=== PATIENT | female | born 1985 | race Caucasian/White ===

== ENCOUNTER 2021-11-03 19:08 | Emergency (ER) | payer BC, OTHER, SELFPAY ==
--- NOTE | 2021-11-03 19:13 | ED.SKABFB ---
HPI - Skin/Abscess/Foreign Bdy General Chief complaint: Skin/Abscess/Foreign Body Stated complaint: staff infection on ear Time Seen by Provider: 11/03/21 19:13 Source: patient and RN notes reviewed History of Present Illness HPI narrative: Patient is a 35-year-old female who presents the urgent care with complaints of a possible staph infection to the right outer ear. Patient states that started 2 days ago and she got amoxicillin from the dentist at her work. Patient states that it has done nothing and the swelling seems to have increased. Patient does have a history of staph infection. States that it has been draining and she has had severe pain. Patient has been taking Tylenol and ibuprofen for pain. Denies of any fevers. No other acute complaints. No acute distress noted. Patient aware of the plan of care. Some parts of this dictation were generated by voice recognition software and may contain typographical and/or grammatical inaccuracies. Related Data Home Medications Medication Instructions Recorded Confirmed dextroamphetamine-amphetamine 30 mg PO DAILY 11/03/21 11/03/21 sumatriptan succinate 25 mg PO DIRECTED PRN 11/03/21 11/03/21 topiramate 25 mg PO DIRECTED PRN 11/03/21 11/03/21 venlafaxine 150 mg PO DAILY 11/03/21 11/03/21 Allergies Allergy/AdvReac Type Severity Reaction Status Date / Time sulfamethoxazole Allergy Unknown RASH Verified 11/03/21 19:20 trimethoprim Allergy Unknown RASH Verified 11/03/21 19:20 amoxicillin [From Augmentin] Allergy Nausea Verified 11/03/21 19:20 clavulanic acid Allergy Nausea Verified 11/03/21 19:20 [From Augmentin] Review of Systems Review of Systems: CONSTITUTIONAL: Denies fever, chills, or sweats. EYES: Denies visual changes, redness, or discharge. ENT: Denies rhinorrhea, congestion, sore throat. Reports of right otalgia CARDIOVASCULAR: Denies chest pain, palpitations, or edema. RESPIRATORY: Denies cough or dyspnea. GASTROINTESTINAL: Denies abdominal pain, nausea, vomiting, or diarrhea. GENITOURINARY: Denies dysuria or hematuria. SKIN: Denies rash or itching. MUSCULOSKELETAL: Denies back pain, joint pain, or myalgia. NEUROLOGIC: Denies headache, numbness, or weakness. All other systems reviewed are negative, except as documented in HPI. PMFSH Comments At the time of my signature, I reviewed and agree with the nursing past medical, surgical, social, and family history. There is no relevant family history pertinent to the patient complaint. Exam Narrative: GENERAL: This is a well-nourished, well-developed patient, in no apparent distress. HEAD: normocephalic, atraumatic. EYES: PERRL. Sclera clear/white. Vision is grossly intact. EARS: Moderate edema and erythema noted to the external right ear with clear yellow drainage. Left external ear normal, bilateral auditory canals clear and without drainage, TMs normal without perforation. Hearing grossly intact. NOSE: external nose normal with no obvious nasal discharge, nares without redness, no rhinorrhea. THROAT: Mucous membranes moist NECK: Neck supple CARDIOVASCULAR: Regular rate and rhythm without murmurs, gallops, or rubs. RESPIRATORY: Clear to auscultation. Breath sounds equal bilaterally. No wheezes, rales, or rhonchi. SKIN: warm, intact with no suspicious lesions or rash, good texture and turgor. NEURO: awake, alert, and oriented to person, place and time. There were no obvious focal neurologic abnormalities. EXTREMITIES: No clubbing, cyanosis, or edema. Course Course Level of Care: Express Care Visit Vital Signs Vital signs: Vital Signs Temperature 99.0 F 11/03/21 19:15 Pulse Rate 108 H 11/03/21 19:15 Respiratory Rate 16 11/03/21 19:15 Blood Pressure 137/87 11/03/21 19:15 Pulse Oximetry 100 11/03/21 19:15 Temperature 99.0 F 11/03/21 19:15 Pulse Rate 108 H 11/03/21 19:15 Respiratory Rate 16 11/03/21 19:15 Blood Pressure 137/87 11/03/21 19:15 Pulse Oximetry 100 01
[2021-11-03 19:15] VITALS: BP 137/87; PULSE 108; RESP 16; TEMP 37.2; O2SAT 100
== END 2021-11-03 19:31 | disposition home or self-care (01) ==
PROVIDERS: Emergency Provider Nurse Practitioner Family; PCP Nurse Practitioner Family
DX: H61.001 Unspecified perichondritis of right external ear (principal); Z86.19 Personal history of other infectious and parasitic diseases; F41.9 Anxiety disorder, unspecified; F32.A Depression, unspecified; F90.9 Attention-deficit hyperactivity disorder, unspecified type
CPT/HCPCS: 99213; G0463

== ENCOUNTER 2021-11-19 14:04 | Emergency (ER) | payer OTHER, BC, SELFPAY ==
[2021-11-19 14:06] VITALS: BP 145/90; PULSE 114; RESP 18; TEMP 36.4; O2SAT 100
--- NOTE | 2021-11-19 14:30 | ED.EAR ---
HPI - Ear Problem General Chief complaint: Ear Stated complaint: Ear Pain Time Seen by Provider: 11/19/21 14:07 Source: patient Mode of arrival: ambulatory Limitations: no limitations History of Present Illness HPI Narrative: This is a 35 year old female that presents to the ER for right ear pain and swelling noted over the last month. She has tried Mupirocin ointment and been on 2 different rounds of Doxycycline without relief. Reports continued redness and swelling of the outer ear. Denies fevers. Related Data Home Medications Medication Instructions Recorded Confirmed dextroamphetamine-amphetamine 30 mg PO DAILY 11/03/21 11/03/21 sumatriptan succinate 25 mg PO DIRECTED PRN 11/03/21 11/03/21 topiramate 25 mg PO DIRECTED PRN 11/03/21 11/03/21 venlafaxine 150 mg PO DAILY 11/03/21 11/03/21 Allergies Allergy/AdvReac Type Severity Reaction Status Date / Time sulfamethoxazole Allergy Unknown RASH Verified 11/19/21 14:09 trimethoprim Allergy Unknown RASH Verified 11/19/21 14:09 amoxicillin [From Augmentin] Allergy Nausea Verified 11/19/21 14:09 clavulanic acid Allergy Nausea Verified 11/19/21 14:09 [From Augmentin] Review of Systems Review of Systems: CONSTITUTIONAL: Denies fever ENT: Reports otalgia. All systems reviewed & are unremarkable except as noted in HPI and below PMFSH Past Medical History Medical History (Updated 11/19/21 @ 14:39 by Sonal Castillo PA-C) History of asthma Social History Social History (Updated 11/19/21 @ 14:33 by Sonal Castillo PA-C) Substance use: never Exam Narrative: GENERAL: Well-appearing, well-nourished, and in no acute distress. HEAD: Normocephalic, atraumatic. EYES: EOMI. ENT: Bilateral TMs pearly jiménez non-bulging. Bilateral external auditory canals normal. Right outer ear with mild to moderate erythema and edema. No active drainage or signs of an abscess. No mastoid erythema, edema or tenderness NECK: Supple. No adenopathy or masses. CHEST: No respiratory distress EXTREMITIES: Normal range of motion. No edema. SKIN: Warm, dry, no rash. NEURO: No focal deficits. Alert and oriented x3. PSYCH: Normal mood and affect Course Vital Signs Vital signs: Vital Signs Temperature 97.6 F 11/19/21 14:06 Pulse Rate 114 H 11/19/21 14:06 Respiratory Rate 18 11/19/21 14:06 Blood Pressure 145/90 H 11/19/21 14:06 Pulse Oximetry 100 11/19/21 14:06 Temperature 97.6 F 11/19/21 14:06 Pulse Rate 114 H 11/19/21 14:06 Respiratory Rate 18 11/19/21 14:06 Blood Pressure 145/90 H 11/19/21 14:06 Pulse Oximetry 100 11/19/21 14:06 Medical Decision Making MDM Narrative Medical decision making narrative: Patient presents to the emergency department for cellulitis to the right outer ear. She is afebrile and nontoxic-appearing. No signs for abscess on exam. Patient has failed therapy with doxycycline. Will trial with clindamycin. I did send a wound culture of the area where there was some serous drainage. Will be given ENT if needed for follow-up. She was given warnings to return to the ER Vital Signs Vital Signs: Vital Signs Temperature 97.6 F 11/19/21 14:06 Pulse Rate 114 H 11/19/21 14:06 Respiratory Rate 18 11/19/21 14:06 Blood Pressure 145/90 H 11/19/21 14:06 Pulse Oximetry 100 11/19/21 14:06 Temperature 97.6 F 11/19/21 14:06 Pulse Rate 114 H 11/19/21 14:06 Respiratory Rate 18 11/19/21 14:06 Blood Pressure 145/90 H 11/19/21 14:06 Pulse Oximetry 100 11/19/21 14:06 Critical Care Time Critical Care Time Critical Care Time: No Discharge Plan Discharge Clinical Impression: Cellulitis of external ear Qualifiers: Laterality: right Qualified Code(s): H60.11 - Cellulitis of right external ear Patient Disposition: Home, Self-Care Condition: Stable Instructions: Antibiotic Form, Cellulitis (ED) Additional Instructions: Return to the ER if you experience fever, increasing redness and
[2021-11-19 14:55] VITALS: BP 123/77; PULSE 77; RESP 18; O2SAT 98
== END 2021-11-19 14:56 | disposition home or self-care (01) ==
LOC: ANHED 14:41
PROVIDERS: Emergency Provider Emergency Medicine; PCP Nurse Practitioner Family
DX: H60.11 Cellulitis of right external ear (principal); J45.909 Unspecified asthma, uncomplicated
CPT/HCPCS: 87070; 87205; 99283

== ENCOUNTER 2022-05-15 15:17 | Emergency (ER) | payer BC, SELFPAY ==
[2022-05-15 15:38] VITALS: BP 123/85; PULSE 89; RESP 18; TEMP 36.8; O2SAT 100
--- NOTE | 2022-05-15 16:30 | ED.SKABFB ---
HPI - Skin/Abscess/Foreign Bdy General Chief complaint: Skin/Abscess/Foreign Body Stated complaint: rash on neck Time Seen by Provider: 05/15/22 16:30 Source: patient, RN notes reviewed and old records reviewed Mode of arrival: ambulatory Limitations: no limitations History of Present Illness HPI narrative: 36 year old female with rash to the right side of her neck and with also irritated skin around initial rash from use of adhesive Band-aide. Patient states that rash started about 5 days ago and area is burning and is painful. She states that she was diagnosed with strep pharyngitis this past Sunday and has been taking Amoxicillin 500 mg twice daily. Patient has small irregular shaped red rash to right anterior neck which has some yelloiwish exudate. with some surrounding areas of redness from adhesive. Patient concern that it could be shingles.patient states that she has been using Vaseline and Bactroban to rash. MD complaint: rash and other (exudate) Onset (ago): day(s) (5) Treatments prior to arrival: other (bactroban) Related Data Home Medications Medication Instructions Recorded Confirmed dextroamphetamine-amphetamine ER 30 mg PO DAILY 11/03/21 11/24/21 30 mg 24hr capsule,extend release sumatriptan succinate 25 mg tablet 25 mg PO DIRECTED PRN Migraine 11/03/21 11/24/21 Headache topiramate 25 mg sprinkle capsule 25 mg PO DIRECTED PRN Migraine 11/03/21 11/24/21 Headache venlafaxine 150 mg 150 mg PO DAILY 11/03/21 11/24/21 capsule,extended release 24 hr Allergies Allergy/AdvReac Type Severity Reaction Status Date / Time sulfamethoxazole Allergy Unknown RASH Verified 05/15/22 16:07 trimethoprim Allergy Unknown RASH Verified 05/15/22 16:07 amoxicillin [From Augmentin] AdvReac Nausea Verified 05/15/22 16:07 clavulanic acid AdvReac Nausea Verified 05/15/22 16:07 [From Augmentin] Review of Systems Review of Systems: CONSTITUTIONAL: Denies fever, chills, or sweats. EYES: Denies visual changes, redness, or discharge. ENT: Denies rhinorrhea, congestion, positive for sore throat which is improving since on Antibiotic, no otalgia. CARDIOVASCULAR: Denies chest pain, palpitations, or edema. RESPIRATORY: Denies cough or dyspnea. GASTROINTESTINAL: Denies abdominal pain, nausea, vomiting, or diarrhea. GENITOURINARY: Denies dysuria or hematuria. SKIN: Positive for rash to anterior neck rash with some exudate. MUSCULOSKELETAL: Denies back pain, joint pain, or myalgia. NEUROLOGIC: Denies headache, numbness, or weakness. PSYCHIATRIC: Positive for history of anxiety or depression. All systems reviewed & are unremarkable except as noted in HPI and below PMFSH Past Medical History Medical History (Updated 05/16/22 @ 21:40 by Linda Olivarez NP) ADHD (attention deficit hyperactivity disorder) Anxiety and depression History of asthma Migraine headache without aura Neuropathy Surgical History Surgical History (Updated 05/16/22 @ 21:31 by Linda Olivarez NP) [place] teeth extracted Family History Family History (Updated 11/24/21 @ 13:47 by Savanah Newsome CMA) Father Alcoholism Hyperthyroidism Grandparent Diabetes mellitus Social History Social History (Updated 05/16/22 @ 21:28 by Linda Olivarez NP) Smoking status: Never smoker Alcohol intake: never Substance use: never Substance use type: does not use Living arrangements: with family Gender identity (if verbalized by the patient): Female Comments At time of signature, agree with nursing past medical, surgical, social and family history. There is no relevant family history pertinent to the presenting complaint Exam Narrative: GENERAL: Well-appearing, well-nourished, and in no acute distress. HEAD: Normocephalic, atraumatic. EYES: PERRLA and EOMI. ENT: Nares clear, no rhinorrhea or epistaxis. Mucous membranes moist.TM's normal with good light reflex, throat with some redness no lesions or exudates some tonsil enlar
== END 2022-05-15 16:54 | disposition home or self-care (01) ==
PROVIDERS: Emergency Provider Registered Nurse; PCP Nurse Practitioner Family
DX: L25.9 Unspecified contact dermatitis, unspecified cause (principal); J45.909 Unspecified asthma, uncomplicated; G62.9 Polyneuropathy, unspecified; F90.9 Attention-deficit hyperactivity disorder, unspecified type; F41.9 Anxiety disorder, unspecified; F32.A Depression, unspecified
CPT/HCPCS: 99213; G0463

== ENCOUNTER 2022-08-28 17:17 | Emergency (ER) | payer BC, SELFPAY ==
[2022-08-28 17:26] VITALS: BP 105/79; PULSE 96; RESP 20; TEMP 36.4; O2SAT 100
--- NOTE | 2022-08-28 18:25 | ED.SKABFB ---
HPI - Skin/Abscess/Foreign Bdy General Chief complaint: Neck Pain/Injury Stated complaint: infection on neck Time Seen by Provider: 08/28/22 18:15 Source: patient and RN notes reviewed Mode of arrival: ambulatory Limitations: dementia History of Present Illness HPI narrative: 36-year-old female presents concern for skin infection to her neck. 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 She reports she just finished a round of prednisone for this condition, however 1 lesions did not improve and her dining room manager suggested it could be infected. She denies fever aches, chills. Reports small amount of drainage. complaint: abscess/boil Related Data Home Medications Medication Instructions Recorded Confirmed dextroamphetamine-amphetamine ER 30 mg PO DAILY 11/03/21 11/24/21 30 mg 24hr capsule,extend release sumatriptan succinate 25 mg tablet 25 mg PO DIRECTED PRN Migraine 11/03/21 11/24/21 Headache topiramate 25 mg sprinkle capsule 25 mg PO DIRECTED PRN Migraine 11/03/21 11/24/21 Headache venlafaxine 150 mg 150 mg PO DAILY 11/03/21 11/24/21 capsule,extended release 24 hr Allergies Allergy/AdvReac Type Severity Reaction Status Date / Time sulfamethoxazole Allergy Unknown RASH Verified 08/28/22 17:36 trimethoprim Allergy Unknown RASH Verified 08/28/22 17:36 amoxicillin [From Augmentin] AdvReac Nausea Verified 08/28/22 17:36 clavulanic acid AdvReac Nausea Verified 08/28/22 17:36 [From Augmentin] Review of Systems Review of Systems: CONSTITUTIONAL: Denies malaise, chills, sweats, or fever. EYES: Denies redness, or discharge. ENT: Denies rhinorrhea, congestion, swollen lips, swollen tongue CARDIOVASCULAR: Denies chest pain, palpitations, or edema. RESPIRATORY: Denies cough or dyspnea. GASTROINTESTINAL: Denies abdominal pain, nausea, vomiting SKIN: Reports throat swelling tender area on the anterior neck. Denies purulent drainage, vesicles, bullae, numbness, pain beyond proportion MUSCULOSKELETAL: Denies joint pain or myalgia. NEUROLOGIC: Denies headache. All systems reviewed & are unremarkable except as noted in HPI and below PMFSH Past Medical History Medical History (Updated 08/28/22 @ 18:27 by Hina Almendarez NP) ADHD (attention deficit hyperactivity disorder) Anxiety and depression History of asthma Migraine headache without aura Neuropathy Surgical History Surgical History (Updated 05/16/22 @ 21:31 by Linda Olivarez NP) [place] teeth extracted Family History Family History (Updated 11/24/21 @ 13:47 by Savanah Newsome CMA) Father Alcoholism Hyperthyroidism Grandparent Diabetes mellitus Social History Social History (Updated 05/16/22 @ 21:28 by Linda Olivarez NP) Smoking status: Never smoker Alcohol intake: never Substance use: never Substance use type: does not use Gender identity (if verbalized by the patient): Female Comments At time of signature, agree with nursing past medical, surgical, social and family history. There is no relevant family history pertinent to the presenting complaint Exam Narrative: GENERAL: Well-appearing, well-nourished, and in no acute distress. HEAD: Normocephalic, atraumatic. EYES: PERRLA, conjunctivae clear ENT: Mucous membranes moist. NECK: Supple. No lymphadenopathy CHEST: Clear to auscultation. No respiratory distress. HEART: Regular rate and rhythm. SKIN: Warm, dry. Erythema, induration, tenderness, warmth with sharp margins noted to the anterior neck. No vesicles, bullae, necrosis, ecchymosis, crepitus noted. NEURO: Alert and oriented x3. PSYCH: Normal mood and affect Course Course Emergency Course: Patient is aware of diagnosis, understands and agrees to treatment plan. Anticipatory guidance given. Patient agrees to follow-up as directed and is aware of reasons to seek care at the emergency department. Portions of this record may have been created with voice maddie
== END 2022-08-28 18:30 | disposition home or self-care (01) ==
PROVIDERS: Emergency Provider Nurse Practitioner; PCP Nurse Practitioner Family
DX: L08.9 Local infection of the skin and subcutaneous tissue, unspecified (principal); B96.89 Other specified bacterial agents as the cause of diseases classified elsewhere; M94.8X9 Other specified disorders of cartilage, unspecified sites; J45.909 Unspecified asthma, uncomplicated; G62.9 Polyneuropathy, unspecified; F90.9 Attention-deficit hyperactivity disorder, unspecified type; F41.9 Anxiety disorder, unspecified; F32.A Depression, unspecified
CPT/HCPCS: 99213; G0463

== ENCOUNTER 2023-03-23 15:57 | Inpatient (IN) | payer BC, SELFPAY ==
--- NOTE | ~2023-03-23 | CT_ITS ---
EXAMINATION: CT brain wo con DATE: 03/23/2023 18:35 INDICATION: headache, different from normal . TECHNIQUE: Computed tomography (CT) of the head was performed without intravenous contrast. The mA wa s adjusted according to patient size. Iterative reconstruction technique was employed. The dose-lengt h product was 605.33 mGy-cm. COMPARISON: None. FINDINGS: No acute intracranial hemorrhage or extra-axial fluid collection. No hydrocephalus, mass, or herniation. No acute ischemic infarct. Unremarkable dural venous sinus attenuation. No acute osseous abnormality. The aerated spaces are clear. IMPRESSION: No acute intracranial process. Reviewed, dictated and finalized at location K.
--- NOTE | ~2023-03-23 | CT_ITS ---
EXAMINATION: CT forearm RT w con DATE: 03/28/2023 13:41 INDICATION: Right forearm abscess post dogbite TECHNIQUE: High resolution computed tomography (CT) of the right forearm was performed with 100 mL Om nipaque-350 intravenous contrast. Additional sagittal and coronal reconstructions were performed. Aut omated exposure control and iterative reconstruction technique were employed. The dose-length product was 657.50 mGy-cm. COMPARISON: Ultrasound dated 03/26/2023 FINDINGS: There is soft tissue swelling with prominent subcutaneous edema along the dorsal/ulnar side of the di stal forearm and surrounding approximate 7 mm diameter ulceration which indicates with approximately 1.5 cm long gas-filled sinus tract. There is hyperemia with increased number of tiny contrast opacifi ed vessels in the surrounding soft tissues. Subcutaneous edema extending proximally along the posteri or margin of the ulna to the level of the elbow. There is no other more remote soft tissue gas. No ev ident involvement of the underlying musculature. Bones are unremarkable. Joint spaces appear normal w ith no evident joint effusions. IMPRESSION: 1. Cellulitis surrounding a skin ulceration with small gas-filled sinus tract extending into the the subcutaneous tissues which could represent either a spontaneously drained abscess or site of incision and drainage. No current drainable abscess or more remote soft tissue gas. Reviewed, dictated and finalized at location A. IMPRESSION: 1. Cellulitis surrounding a skin ulceration with small gas-filled sinus tract e xtending into the the subcutaneous tissues which could represent either a spont aneously drained abscess or site of incision and drainage. No current drainable abscess or more remote soft tissue gas.
--- NOTE | ~2023-03-23 | US_ITS ---
EXAMINATION: US soft tissue UE RT DATE: 03/26/2023 13:00 INDICATION: Infection to medial right forearm post bug bite with concern for abscess TECHNIQUE: Multiple grayscale and Doppler ultrasound images of the region of concern at the right for earm were obtained. COMPARISON: None FINDINGS: There is a reticulated pattern of hypoechoic edema in the subcutaneous fat of the right forearm surro unding and contiguous with a poorly defined more confluent hypoechoic region measuring 7 x 3 x 1 cm. There is surrounding hyperemia on color Doppler but no internal vascular flow within the hypoechoic r egion. There is no well-defined peripheral wall to suggest an organized abscess. There is a defect at the skin surface overlying the region of concern which could represent an ulceration or site of surg ical drainage in the appropriate clinical setting. This remains superficial to the peripheral muscula r fascia. IMPRESSION: 1. Poorly defined 7 x 3 x 1 cm hypoechoic region without an organized abscess wall likely representin g a region of phlegmonous change with surrounding edema. Reviewed, dictated and finalized at location A. IMPRESSION: 1. Poorly defined 7 x 3 x 1 cm hypoechoic region without an organized abscess w all likely representing a region of phlegmonous change with surrounding edema.
--- NOTE | ~2023-03-23 | US_ITS ---
EXAMINATION: US pelvic complete DATE: 03/23/2023 19:55 INDICATION: concern for septic TECHNIQUE: Multiple transabdominal sonographic images of the pelvis were obtained. COMPARISON: None. FINDINGS: Uterus: 6.3 x 3.0 x 3.8 cm. Endometrial complex measures 4 mm. Right Ovary: 1.9 x 1.7 x 1.8 cm. Vascular flow is present. No adnexal mass Left Ovary: 2.3 x 1.6 x 2.5 cm. Vascular flow is present. No adnexal mass There is no free fluid in the pelvis. IMPRESSION: Normal pelvic sonogram findings. No sonographic evidence of retained products of conception. Reviewed, dictated and finalized at location K. IMPRESSION: Normal pelvic sonogram findings. No sonographic evidence of retained products o f conception.
--- NOTE | ~2023-03-23 | XR_ITS ---
EXAMINATION: XR chest 1V portable Exam Date/Time: 03/23/2023 16:50 CDT HISTORY: Pt complains of flu symptoms after being bit by spider x1day Comparison: 10/05/2016. RESULT: Lines, tubes, and devices: None. Lungs and pleura: Clear. Cardiomediastinal silhouette: Stable. Other: No acute osseous or upper abdominal finding. IMPRESSION: No acute cardiopulmonary process. Reviewed, dictated and finalized at location K.
[2023-03-23 15:59] VITALS: BP 148/91; PULSE 140; RESP 16; TEMP 37.6; O2SAT 98
--- NOTE | 2023-03-23 16:32 | ED.SKABFB ---
HPI - Skin/Abscess/Foreign Bdy General Chief complaint: Skin/Abscess/Foreign Body <Samantha Griffin PA-C - Last Filed: 03/23/23 20:23> Stated complaint: right arm swelling, pain <Samantha Griffin PA-C - Last Filed: 03/23/23 20:23> Time Seen by Provider: 03/23/23 16:15 <Samantha Griffin PA-C - Last Filed: 03/23/23 20:23> History of Present Illness HPI narrative: 37 y/o F with a history of migraines, asthma, ADHD reports for evaluation of redness, edema and pain to her right wrist and forearm that started yesterday. Patient states she noticed a scab to her forearm while she was cleaning a pool last night, therefore thinks it may be a bug bite. She denies seeing a bug bite or feeling a bug bite her. States she woke up this morning with redness, erythema and pain to her right upper extremity. She went to [facility] emergency department this morning, was started on doxycycline, took one dose and continued to develop worsening symptoms including increased erythema, pain, edema and a fever, therefore reported to our ED. Patient also reports a bitemporal headache that wraps to the back of her head that started today. Denies vision changes, focal numbness or weakness, neck pain, back pain. Of note, patient reports she was 7 weeks and had a miscarriage 7 days ago. Patient states she is has a history of multiple miscarriages and is followed by her OB closely. She was started on progesterone and had her progesterone and hCG levels checked regularly by her OBGYN, Dr. Rhoades at [facility]. States 7 days ago, her hCG level dropped to 44 and the next day she began to have vaginal bleeding. Patient reports she does recall passing a small amount of tissue, but not as much as she has in the past when she has had past miscarriages. States she bled for 2 days and has not had bleeding, vaginal discharge, abdominal pain or cramping, low back pain since. She was scheduled to have an appointment with Dr. Rhoades today, but did not go due to coming to the ED instead. She denies concern for STDs. She does report dysuria that started today and an intermittent cough. Denies chest pain, shortness of breath. <Samantha Griffin PA-C - Last Filed: 03/23/23 20:23> Related Data Home medications: Home Medications Medication Instructions Recorded Confirmed dextroamphetamine-amphetamine ER 30 mg PO DAILY 11/03/21 11/24/21 30 mg 24hr capsule,extend release sumatriptan succinate 25 mg tablet 25 mg PO DIRECTED PRN Migraine 11/03/21 11/24/21 Headache topiramate 25 mg sprinkle capsule 25 mg PO DIRECTED PRN Migraine 11/03/21 11/24/21 Headache venlafaxine 150 mg 150 mg PO DAILY 11/03/21 11/24/21 capsule,extended release 24 hr <Samantha Griffin PA-C - Last Filed: 03/23/23 20:23> Allergies/Adverse reactions: Allergies Allergy/AdvReac Type Severity Reaction Status Date / Time sulfamethoxazole Allergy Unknown RASH Verified 08/28/22 17:36 trimethoprim Allergy Unknown RASH Verified 08/28/22 17:36 amoxicillin [From Augmentin] AdvReac Nausea Verified 08/28/22 17:36 clavulanic acid AdvReac Nausea Verified 08/28/22 17:36 [From Augmentin] <Samantha Griffin PA-C - Last Filed: 03/23/23 20:23> Review of Systems Review of Systems: CONSTITUTIONAL: See HPI EYES: Denies visual changes, redness, or discharge. ENT: Denies rhinorrhea, congestion, sore throat, or otalgia. CARDIOVASCULAR: Denies chest pain, palpitations, or edema. RESPIRATORY: See HPI GASTROINTESTINAL: Denies abdominal pain, nausea, vomiting, or diarrhea. GENITOURINARY: See HPI SKIN: See HPI MUSCULOSKELETAL: Denies back pain, joint pain, or myalgia. NEUROLOGIC: Denies headache, numbness, dizziness, or weakness. PSYCHIATRIC: Denies anxiety or depression. <Samantha Griffin PA-C - Last Filed: 03/23/23 20:23> PMFSH Past Medical History Medical History: Medical History (Updated 03/23/23 @ 20:38 by Mirian Wheat VICE PRESIDENT OF NEWS
[2023-03-23] MEDS: LORazepam INJ (*CRX) 2 MG/ML VIAL 0.5 MG IV PUSH (17:27)
[2023-03-23] MEDS: SODIUM CHLORIDE 0.9% IV 1,000 ML 999 ML IV CONT ×2 (17:28→20:36)
[2023-03-23] MEDS: KETOROLAC 30 MG/ML VIAL (*BKC) IV PUSH (17:28)
[2023-03-23] MEDS: VANCOMYCIN 1,000 MG/NS 250 ML 1,000 MG/250 ML BAG 250 MG IVPB (17:28)
[2023-03-23 17:39] LABS: Hematocrit 41.3 % (37.0-47.0); Hemoglobin 13.5 g/dL (12.0-15.0); Mean Corpuscular HGB Conc 32.7 g/dl (32-36); Mean Corpuscular Hemoglobin 26.7 pg (26-34); Mean Corpuscular Volume 81.8 fl (80-100); Mean Platelet Volume 12.1 fl (7.4-10.4); Platelet Count Result 304 k/mm3 (150-375); Red Blood Count 5.05 M/mm3 (4.2-5.4); Red Cell Distribution Width 12.9 % (11.5-14.5); White Blood Count 18.5 K/mm3 (4.5-10.0)
[2023-03-23 17:45] VITALS: PULSE 108; RESP 18
[2023-03-23] MEDS: ALBUTEROL SULFATE NEB 2.5 MG/3 ML INH INHALATION (17:49)
[2023-03-23] MEDS: IPRATROPIUM BR 0.02% INH SOLN 0.5 MG/2.5 ML VIAL INHALATION (17:49)
[2023-03-23 17:52] VITALS: PULSE 104; RESP 18
[2023-03-23 17:58] LABS: Alanine Aminotransferase 25 U/L (6-35); Albumin Level 4.9 g/dL (3.5-5.1); Alkaline Phosphatase 80 U/L (38-126); Anion Gap 11 mmol/L (8-16); Aspartate Amino Transferase 24 U/L (14-36); Blood Urea Nitrogen 18 mg/dL (7-17); CRP 5.1 mg/dL (<1.0); Calcium 9.3 mg/dL (8.4-10.2); Carbon Dioxide 20 mmol/L (22-30); Chloride 104 mmol/L (98-107); Estimated Glomerular Filt Rate > 60; Glucose 92 mg/dL (65-110); Potassium 4.1 mmol/L (3.4-5.0); Sodium 135 mmol/L (137-145)
[2023-03-23 18:21] LABS: Influenza A QL RT-PCR Negative (Negative); Influenza B QL RT-PCR Negative (Negative); SARS-CoV-2 RNA PCR Negative (Negative)
[2023-03-23 18:28] LABS: Erythrocyte Sedimentation Rate 10 mm/hr (0-20)
[2023-03-23 18:32] LABS: Band Neutrophils Percent 5 % (0-6); Lymphocytes Absolute Manual 0.92 K/mm3 (1.1-4.5); Monocytes Absolute Manual 0.92 K/mm3 (0.1-0.90); Monocytes Percent Manual 5 % (3-9); Neutrophils Absolute Manual 16.65 K/mm3 (1.7-7.2); Neutrophils Percent Manual 85 % (46-73); Platelet Estimate Adequate (Adequate); Schistocytes None Seen (NORMAL); Total Cells Counted 100
--- NOTE | 2023-03-23 20:34 | PM.IMHP ---
H&P: HPI History of Present Illness Date/Time: 03/23/23 20:34 Chief Complaint: Redness and edema to right arm Narrative: This is a 37-year-old female patient with a history of migraine, asthma and ADHD. The patient came to the emergency room to be evaluated for edema pain to her right wrist and forearm that started yesterday. The patient stated that she was cleaning a pool last night emboli she had a bug bite. She denies seeing the above. She woke up in the morning with redness, erythema and pain her right upper extremity. She went to [facility] Emergency Room and was started on doxycycline. She took 1 dose and continue to have worsening symptoms. She did have increased edema , pain, edema and fever. The patient then proceeded to come to the emergency room. The patient also reported that she was 7 weeks and had a miscarriage 7 days ago. She has had multiple miscarriages. A vaginal exam was performed in the emergency room. Cultures were obtained. White count 18.5. Neutrophils 85. Sodium 135. Her beta hCG quantitative is now listed 2.39. The patient was started on IV fluids vancomycin Ativan Toradol albuterol Atrovent and Tylenol. Blood cultures were obtained and the patient was checked for chlamydia and gonorrhea. The patient is being admitted to observation status on the date of service of 03/23/2023 Review of Systems Review of Systems: All systems reviewed & are unremarkable except as noted in HPI and below Constitutional: Constitutional: Reports as per HPI and Reports no additional constitutional complaints Eyes: Eyes: Reports as per HPI and Reports no additional eye complaints ENT: Reports system reviewed and no additional complaints, except as documented and Reports Normal hearing present Cardiovascular: Cardiovascular: Reports no additional cardiovascular complaints Respiratory: Respiratory: Reports no additional respiratory complaints and Reports no additional respiratory complaints Gastrointestinal: Gastrointestinal: Reports as per HPI and Reports no additional gastrointestinal complaints Musculoskeletal: Musculoskeletal: Reports no additional musculoskeletal complaints Integumentary/Breasts: Skin/Breast: Reports system reviewed and no additional complaints, except as docu and Reports as per HPI Neurologic: Reports system reviewed and no additional complaints, except as documented, Reports as per HPI and Reports Normal hearing present Psychiatric: Psychiatric: Reports no additional psychiatric complaints and Reports as per HPI Endocrine: Endocrine: Reports no additional endocrine complaints Hematologic/Lymphatic: Hematologic/Lymphatic: Reports no additional hematologic/lymphatic complaints Allergic/Immunologic: Allergic/Immunologic: Reports no additional allergic/immunologic complaints [facility] Past Medical History Medical History ADHD (attention deficit hyperactivity disorder) Anxiety and depression Autoimmune disease History of asthma Migraine headache without aura Neuropathy Surgical History Surgical History [place] teeth extracted Family History Family History Father Alcoholism Hyperthyroidism Cerebrovascular accident Grandparent Diabetes mellitus Liver cancer Malignant neoplasm of prostate Sibling Hemochromatosis Migraine Social History Social History (Updated 03/24/23 @ 00:06 by Mirian Wheat NP) Social History: she lives with her . She has one son who has cerebral palsy and one step son cerebral palsey . The patient vapes and uses marijuana. She is a [id number] mother. Code status full code Smoking status: Current every day smoker Tobacco type: e-cigarettes/vaping Alcohol intake: never Substance use: current Substance use type: marijuana Lack of Transportation: No Lack of
--- NOTE | 2023-03-23 20:36 | PC.NURSE ---
Vancomycin started at 1728 is still running at this time due to pt condition.
[2023-03-23 20:46] LABS: Appearance Urine Clear (Clear); Bacteria Urine None Seen /hpf; Bilirubin Urine Negative (Negative); Blood Urine Negative (Negative); Color Urine Yellow (Yellow); Glucose Urine UA Negative (Negative); Ketones Urine 1+ mg/dL (Negative); Leukocyte Esterase Ur Trace LEU/UL (Negative); Nitrate Urine Negative (Negative); Non Pathogenic Casts 0-2; Protein Urine Negative (Negative); RBC Urine 0-2 /hpf (0-2); Specific Grav Ur 1.018 (1.001-1.035); Squamous Epithelial Cell Urine Moderate /hpf (Few); WBC Urine 0-5 /hpf; pH Urine 5.5 (5.0-9.0)
[2023-03-23 20:48] LABS: INR 1.1; Partial Thromboplastin Time 25.9 SECONDS (22.3-36.8); Prothrombin Time 14.4 Seconds (11.1-14.7)
[2023-03-23 20:50] LABS: Add Urine Microscopic? YES
[2023-03-23 21:05] LABS: Beta HCG Quantitative < 2.39 mIU/ML
[2023-03-23] MEDS: ACETAMINOPHEN 500 MG TABLET 1000 MG PO (21:16)
[2023-03-23 21:42] VITALS: BP 109/79; PULSE 93; RESP 15; O2SAT 100
[2023-03-23 22:00] VITALS: BP 115/69; PULSE 101; RESP 14; TEMP 37.2; O2SAT 100
[2023-03-23 22:12] LABS: Lactic Acid Reflex 1.3 mmol/L (0.7-2.0)
--- NOTE | 2023-03-23 22:15 | ADMGEN ---
This patient, Cherelle Yates, was admitted to Medical Room 341-01. Patient/family oriented to hospital policies and general routines including ID bracelet, bed and alarms, visiting hours, pain management, procedures, bathroom and other care routines, personal items, smoking policy, room service/diet, and visiting hours. Information on how to activate the Rapid Response Team has been discussed. Patient/Family are encouraged to report perceived risks to care and to ask questions if they do not understand what they are told or what they should do.
[2023-03-23] MEDS: PIPERACILLN/TAZ 3.375GM/NS50ML 3.375 GM/50 ML BAG IVPB (22:32)
[2023-03-24] MEDS: SODIUM CHLORIDE 0.9% IV 1,000 ML 100 ML IV CONT (01:00)
[2023-03-24 01:30] VITALS: O2SAT 99
[2023-03-24] MEDS: PIPERACILLN/TAZ 3.375GM/NS50ML 3.375 GM/50 ML BAG IVPB ×3 (05:22→17:16)
[2023-03-24 05:32] VITALS: BP 103/58; PULSE 91; RESP 16; TEMP 36.6; O2SAT 100
[2023-03-24 06:06] LABS: Basophils Absolute Auto 0.1 K/mm3 (0.0-0.1); Basophils Percent Auto 0.4 % (0.2-1.2); Eosinophils Absolute Auto 0.1 K/mm3 (0-0.3); Eosinophils Percent Auto 0.9 % (0-4.4); Hematocrit 37.7 % (37.0-47.0); Hemoglobin 11.7 g/dL (12.0-15.0); Immature Granulocyte Absolute 0.09 K/mm3 (0.00-0.031); Immature Granulocyte Percent A 0.6 % (0-0.5); Lymphocytes Absolute Auto 2.22 K/mm3 (0.9-3.2); Lymphocytes Percent Auto 13.8 % (18.3-44.2); Mean Corpuscular Hemoglobin 27.3 pg (26-34); Mean Corpuscular Volume 88.1 fl (80-100); Mean Platelet Volume 12.6 fl (7.4-10.4); Monocytes Absolute Auto 1.1 K/mm3 (0.1-0.6); Monocytes Percent Auto 6.8 % (2.6-8.5); Neutrophils Absolute Auto 12.5 K/mm3 (1.3-6.7); Neutrophils Percent Auto 77.5 % (45.5-73.1); Platelet Count Result 229 k/mm3 (150-375); Red Blood Count 4.28 M/mm3 (4.2-5.4); Red Cell Distribution Width 13.2 % (11.5-14.5); White Blood Count 16.1 K/mm3 (4.5-10.0)
[2023-03-24 06:24] VITALS: BMI 24.8
[2023-03-24 06:27] LABS: Magnesium 2.4 mg/dL (1.6-2.3)
[2023-03-24] MEDS: ACETAMINOPHEN 325 MG TABLET 650 MG PO (06:30)
[2023-03-24 06:38] LABS: Lactic Acid Reflex 4.3 mmol/L (0.7-2.0)
[2023-03-24] MEDS: SODIUM CHLORIDE 0.9% IV 1,000 ML 999 ML IV CONT ×2 (07:30→08:34)
--- NOTE | 2023-03-24 08:25 | PM.IMPN ---
Progress Note: A&P Assessment and Plan (1) Cellulitis: Qualifiers: Laterality: right Site of cellulitis: extremity Site of cellulitis of extremity: upper extremity Qualified Code(s): L03.113 - Cellulitis of right upper limb Code(s): L03.90 - Cellulitis, unspecified Status: Acute (2) Sepsis: Qualifiers: Sepsis acute organ dysfunction status: without acute organ dysfunction Sepsis type: sepsis due to unspecified organism Qualified Code(s): A41.9 - Sepsis, unspecified organism Code(s): A41.9 - Sepsis, unspecified organism Status: Acute (3) Anxiety and depression: Code(s): F41.9 - Anxiety disorder, unspecified; F32.A - Depression, unspecified Status: Acute (4) Headache: Code(s): R51.9 - Headache, unspecified Status: Acute (5) Autoimmune disease: Code(s): M35.9 - Systemic involvement of connective tissue, unspecified Status: Acute Plan Cellulitis with sepsis -WBC elevated 18.5 on admission, 16.1 today. -Receiving broad spectrum antibiotic coverage with Vanco and Zosyn. Vanco trough 03/25/23 at 1000. Dosing per pharmacy. -No documented fevers overnight however, patient does endorse chills, generalized body aches, and night sweats. Acetaminophen PRN for fever greater than 101. Will repeat cultures should she fever. Current blood cultures are pending. -Lactic 4.3 this morning. Administered 2 L of NS with a repeat lactic of 1.0. NS continues at 100 mls per hour. -Pain related to right arm swelling is being treated with [place] 10 mg q 4 prn. Encourage right arm elevation. Anxiety/ADHD -Restarting home medication Dextroamphetamine-amphetamine 30 mg PO daily and 10 mg PO HS. -Venlafaxine 150 mg PO daily Migraine -PRN Sumatriptan Succinate 25 mg PO as needed Neuropathy -Takes 1200 mg of Gabapentin PO TID. Restarted. Recurrent Miscarriage -A3 -Recent loss at 7 weeks. Pelvic ultrasound obtained with normal sonogram findings. No sonographic evidence of retained products of conception. -HCG <2.39 -Provided emotional support. Unknown Autoimmune disorder -recent biopsy with Coder, Dr. Powell confirming autoimmune process however the patient can not recall name of diagnosis. -follows with Copyright Manager, Dr Powell. Subjective Date/time seen: 03/24/23 08:25 Interval history: This is a 37-year-old female who presents to our ER last night with complaints of worsening right arm swelling erythema and tenderness. She states that the day before she was cleaning out her pool and she sustained a bug bite. She went to [facility] where she was given a prescription for doxycycline and discharged home. Later after taking a nap she noticed that her right arm swelling had increased and was traveling up to her elbow. She then came to [place] [facility] for evaluation. She has a past medical history of ADHD, anxiety and depression, asthma, migraine, neuropathy, recent miscarriage, and new diagnosis of autoimmune disease. She is unsure of the name of the autoimmune disease but she had a biopsy done by Dr. Powell, buttonholer which confirmed diagnosis. And she follows with Dr. Powell, replenisher. She has yet to start on any medications for this. Today she is found lying in bed she appears anxious. She states that she had subjective chills and sweating overnight, she has generalized body aches, and severe tenderness in her right arm that is causing limited range of motion to her right elbow. She also complains of mild headache and neck pain. She does not think that she has been voiding enough but she states she is drinking fluids. She denies cough, chest pain, shortness of breath, abdominal pain, and diarrhea. Lactic acid was 4.3 on labs this morning for which she is receiving 2 L of normal saline. Will check a lactic after infusion of 2 L NS. Review of Systems Review of Systems: All systems reviewed & are unremarkable except as noted i
[2023-03-24 08:26] VITALS: BP 111/77; PULSE 92; RESP 15; TEMP 36.8; O2SAT 100
[2023-03-24] MEDS: GABAPENTIN 400 MG CAPSULE 1200 MG PO ×3 (08:32→17:16)
[2023-03-24] MEDS: ENOXAPARIN 40 MG/0.4 ML SYRINGE SUB-Q (08:32)
[2023-03-24] MEDS: VENLAFAXINE HCL XR 75 MG CAP.ER.24H 150 MG PO (08:32)
[2023-03-24] MEDS: HYDROcodone/acetaminophen (*CRX) 5-325 MG TABLET 1 TAB PO ×2 (08:32→10:31)
[2023-03-24 09:02] LABS: Reflex Lactic Acid Yes or No Add Lactic
[2023-03-24 09:22] LABS: Alanine Aminotransferase 20 U/L (6-35); Albumin Level 3.8 g/dL (3.5-5.1); Alkaline Phosphatase 70 U/L (38-126); Anion Gap 10 mmol/L (8-16); Aspartate Amino Transferase 21 U/L (14-36); Bilirubin,Total 0.7 mg/dL (0.2-1.3); Blood Urea Nitrogen 11 mg/dL (7-17); Calcium 8.2 mg/dL (8.4-10.2); Carbon Dioxide 13 mmol/L (22-30); Chloride 117 mmol/L (98-107); Estimated Glomerular Filt Rate > 60; Glucose 82 mg/dL (65-110); Potassium 4.2 mmol/L (3.4-5.0); Sodium 140 mmol/L (137-145)
[2023-03-24] MEDS: VANCOMYCIN 1,000 MG/NS 250 ML 1,000 MG/250 ML BAG 250 MG IVPB ×2 (10:32→22:54)
[2023-03-24 13:55] VITALS: BP 116/67; PULSE 97; RESP 16; TEMP 37; O2SAT 99
[2023-03-24] MEDS: SUMAtriptan SUCCINATE 25 MG TABLET PO ×2 (15:19→19:41)
[2023-03-24] MEDS: HYDROcodone/acetaminophen (*CRX) 10-325 MG TABLET 1 TAB PO ×2 (15:22→21:15)
[2023-03-24] MEDS: SENNA/DOCUSATE SODIUM TABLET 1 TAB PO (19:41)
[2023-03-24 19:47] VITALS: PULSE 97; RESP 16; O2SAT 99
[2023-03-24 20:00] VITALS: BP 122/72; PULSE 100; RESP 18; TEMP 36.9; O2SAT 100
[2023-03-25] VITALS: BP 122/78; PULSE 108; RESP 16; TEMP 37.2; O2SAT 96
[2023-03-25] MEDS: PIPERACILLN/TAZ 3.375GM/NS50ML 3.375 GM/50 ML BAG IVPB ×5 (00:02→23:39)
[2023-03-25 04:00] VITALS: BP 119/61; PULSE 102; RESP 18; TEMP 37.1; O2SAT 96
[2023-03-25] MEDS: SODIUM CHLORIDE 0.9% IV 1,000 ML 100 ML IV CONT (05:00)
[2023-03-25] MEDS: ACETAMINOPHEN 325 MG TABLET 650 MG PO ×2 (05:02→09:05)
--- NOTE | 2023-03-25 07:49 | PM.IMPN ---
Progress Note: A&P Assessment and Plan (1) Cellulitis: Qualifiers: Laterality: right Site of cellulitis: extremity Site of cellulitis of extremity: upper extremity Qualified Code(s): L03.113 - Cellulitis of right upper limb Code(s): L03.90 - Cellulitis, unspecified Status: Acute (2) Sepsis: Qualifiers: Sepsis acute organ dysfunction status: without acute organ dysfunction Sepsis type: sepsis due to unspecified organism Qualified Code(s): A41.9 - Sepsis, unspecified organism Code(s): A41.9 - Sepsis, unspecified organism Status: Acute (3) Anxiety and depression: Code(s): F41.9 - Anxiety disorder, unspecified; F32.A - Depression, unspecified Status: Acute (4) Headache: Code(s): R51.9 - Headache, unspecified Status: Acute (5) Autoimmune disease: Code(s): M35.9 - Systemic involvement of connective tissue, unspecified Status: Acute Plan Cellulitis with sepsis -WBC elevated 18.5-->16.1-->14.5 today. -Receiving broad spectrum antibiotic coverage with Vanco and Zosyn. Vanco trough 03/25/23 at 1000 was 6.2. Dosing per pharmacy. -No documented fevers overnight. Body aches improved but still waking up drenched in sweat. Possibly could be related to use of narcotic and antibiotic regimen. Acetaminophen PRN for fever greater than 101. Will repeat cultures should she fever. Current blood cultures with NGTD. -Lactic 4.3 03/25. Administered 2 L of NS with a repeat lactic of 1.0. NS continues at 100 mls per hour. -CRP elevated 18.3 -Pain related to right arm swelling is being treated with [place] 10 mg q 4 prn. Encourage right arm elevation. Anxiety/ADHD -Unable to restart home medication Dextroamphetamine-amphetamine as it is not on formulary. Nurse asked patient if her could bring in her home meds but the patient says she will be fine without it. -Venlafaxine 150 mg PO daily Hypokalemia -K+ 3.3 on am labs. Will replace with K+ 40 Meq PO once. Migraine -CT head on admission with no acute intracranial process. -Improved today after prn acetaminophen -PRN Sumatriptan Succinate 25 mg PO as needed Neuropathy -Takes 1200 mg of Gabapentin PO TID. Restarted. Recurrent Miscarriage -A3 -Recent loss at 7 weeks. Pelvic ultrasound obtained with normal sonogram findings. No sonographic evidence of retained products of conception. -HCG <2.39 -Provided emotional support. Unknown Autoimmune disorder -recent biopsy with Assembler Adjuster, Dr. Powell confirming autoimmune process however the patient can not recall name of diagnosis. -follows with Identity Management Developer, Dr Powell. Subjective Date/time seen: 03/25/23 07:49 Interval history: This is a 37-year-old female who presents to our ER last night with complaints of worsening right arm swelling erythema and tenderness. She states that the day before she was cleaning out her pool and she sustained a bug bite. She went to [facility] where she was given a prescription for doxycycline and discharged home. Later after taking a nap she noticed that her right arm swelling had increased and was traveling up to her elbow. She then came to [place] [facility] for evaluation. She has a past medical history of ADHD, anxiety and depression, asthma, migraine, neuropathy, recent miscarriage, and new diagnosis of autoimmune disease. She is unsure of the name of the autoimmune disease but she had a biopsy done by Dr. Powell, associate store director which confirmed diagnosis. And she follows with Dr. Powell, bass viol repairer. She has yet to start on any medications for this. Today she is found lying in bed she appears anxious. She states that she had subjective chills and sweating overnight, she has generalized body aches, and severe tenderness in her right arm that is causing limited range of motion to her right elbow. She also complains of mild headache and neck pain. She does not think that she has been voiding enough but s
[2023-03-25 08:00] VITALS: BP 117/69; PULSE 89; RESP 16; TEMP 36.3; O2SAT 98
[2023-03-25] MEDS: ENOXAPARIN 40 MG/0.4 ML SYRINGE SUB-Q (08:55)
[2023-03-25] MEDS: GABAPENTIN 400 MG CAPSULE 1200 MG PO ×3 (08:55→17:08)
[2023-03-25] MEDS: VENLAFAXINE HCL XR 75 MG CAP.ER.24H 150 MG PO (08:55)
[2023-03-25 10:14] LABS: Hematocrit 35.2 % (37.0-47.0); Hemoglobin 11.1 g/dL (12.0-15.0); Mean Corpuscular HGB Conc 31.5 g/dl (32-36); Mean Corpuscular Hemoglobin 27.5 pg (26-34); Mean Corpuscular Volume 87.3 fl (80-100); Mean Platelet Volume 11.9 fl (7.4-10.4); Platelet Count Result 217 k/mm3 (150-375); Red Blood Count 4.03 M/mm3 (4.2-5.4); Red Cell Distribution Width 13.2 % (11.5-14.5); White Blood Count 14.5 K/mm3 (4.5-10.0)
[2023-03-25 10:37] LABS: Vancomycin Trough 6.2 ug/mL (10.0-20.0)
[2023-03-25 10:38] LABS: Anion Gap 8 mmol/L (8-16); Blood Urea Nitrogen 3 mg/dL (7-17); Calcium 8.4 mg/dL (8.4-10.2); Carbon Dioxide 23 mmol/L (22-30); Chloride 107 mmol/L (98-107); Estimated Glomerular Filt Rate > 60; Glucose 112 mg/dL (65-110); Magnesium 2.1 mg/dL (1.6-2.3); Potassium 3.3 mmol/L (3.4-5.0); Sodium 138 mmol/L (137-145)
[2023-03-25 10:49] LABS: CRP 18.3 mg/dL (<1.0)
[2023-03-25 12:00] VITALS: BP 115/60; PULSE 97; RESP 16; TEMP 36.8; O2SAT 99
[2023-03-25] MEDS: POTASSIUM CHLORIDE 20 MEQ ER TABLET 40 MEQ PO (12:01)
[2023-03-25] MEDS: HYDROcodone/acetaminophen (*CRX) 10-325 MG TABLET 1 TAB PO ×2 (13:29→20:31)
[2023-03-25 16:00] VITALS: BP 107/65; PULSE 93; RESP 16; TEMP 37.1; O2SAT 100
[2023-03-25] MEDS: SUMAtriptan SUCCINATE 25 MG TABLET PO (17:09)
[2023-03-25 20:00] VITALS: BP 102/63; PULSE 96; RESP 18; TEMP 36.7; O2SAT 100
[2023-03-25] MEDS: SENNA/DOCUSATE SODIUM TABLET 1 TAB PO (20:03)
[2023-03-26] VITALS: BP 114/73; PULSE 88; RESP 20; TEMP 36.7; O2SAT 98
[2023-03-26 04:00] VITALS: BP 113/67; PULSE 89; RESP 18; TEMP 36.6; O2SAT 99
[2023-03-26] MEDS: PIPERACILLN/TAZ 3.375GM/NS50ML 3.375 GM/50 ML BAG IVPB ×4 (06:04→23:15)
[2023-03-26] MEDS: HYDROcodone/acetaminophen (*CRX) 10-325 MG TABLET 1 TAB PO ×3 (06:04→23:17)
[2023-03-26 06:30] LABS: Basophils Absolute Auto 0.1 K/mm3 (0.0-0.1); Basophils Percent Auto 0.4 % (0.2-1.2); Eosinophils Absolute Auto 0.4 K/mm3 (0-0.3); Eosinophils Percent Auto 3.2 % (0-4.4); Hematocrit 34.7 % (37.0-47.0); Hemoglobin 10.7 g/dL (12.0-15.0); Immature Granulocyte Absolute 0.07 K/mm3 (0.00-0.031); Immature Granulocyte Percent A 0.6 % (0-0.5); Lymphocytes Absolute Auto 1.32 K/mm3 (0.9-3.2); Lymphocytes Percent Auto 10.4 % (18.3-44.2); Mean Corpuscular HGB Conc 30.8 g/dl (32-36); Mean Corpuscular Hemoglobin 26.8 pg (26-34); Mean Corpuscular Volume 86.8 fl (80-100); Mean Platelet Volume 12.8 fl (7.4-10.4); Monocytes Absolute Auto 0.8 K/mm3 (0.1-0.6); Monocytes Percent Auto 6.1 % (2.6-8.5); Neutrophils Absolute Auto 10.1 K/mm3 (1.3-6.7); Neutrophils Percent Auto 79.3 % (45.5-73.1); Platelet Count Result 213 k/mm3 (150-375); Red Cell Distribution Width 12.9 % (11.5-14.5); White Blood Count 12.7 K/mm3 (4.5-10.0)
[2023-03-26 06:45] LABS: Alanine Aminotransferase 17 U/L (6-35); Albumin Level 3.7 g/dL (3.5-5.1); Alkaline Phosphatase 75 U/L (38-126); Anion Gap 8 mmol/L (8-16); Aspartate Amino Transferase 25 U/L (14-36); Bilirubin,Total 0.5 mg/dL (0.2-1.3); Blood Urea Nitrogen 2 mg/dL (7-17); Calcium 8.5 mg/dL (8.4-10.2); Carbon Dioxide 22 mmol/L (22-30); Chloride 108 mmol/L (98-107); Estimated Glomerular Filt Rate > 60; Glucose 77 mg/dL (65-110); Magnesium 2.1 mg/dL (1.6-2.3); Potassium 3.5 mmol/L (3.4-5.0); Sodium 138 mmol/L (137-145)
[2023-03-26] MEDS: ENOXAPARIN 40 MG/0.4 ML SYRINGE SUB-Q (08:59)
[2023-03-26] MEDS: VENLAFAXINE HCL XR 75 MG CAP.ER.24H 150 MG PO (08:59)
[2023-03-26] MEDS: GABAPENTIN 400 MG CAPSULE 1200 MG PO ×3 (08:59→17:29)
[2023-03-26 12:00] VITALS: BP 106/74; PULSE 91; RESP 16; TEMP 36.4; O2SAT 100
--- NOTE | 2023-03-26 15:20 | PM.IMPN ---
Progress Note: A&P Assessment and Plan (1) Cellulitis: Qualifiers: Laterality: right Site of cellulitis: extremity Site of cellulitis of extremity: upper extremity Qualified Code(s): L03.113 - Cellulitis of right upper limb Code(s): L03.90 - Cellulitis, unspecified Status: Acute (2) Sepsis: Qualifiers: Sepsis acute organ dysfunction status: without acute organ dysfunction Sepsis type: sepsis due to unspecified organism Qualified Code(s): A41.9 - Sepsis, unspecified organism Code(s): A41.9 - Sepsis, unspecified organism Status: Acute (3) Anxiety and depression: Code(s): F41.9 - Anxiety disorder, unspecified; F32.A - Depression, unspecified Status: Acute (4) Headache: Code(s): R51.9 - Headache, unspecified Status: Acute (5) Autoimmune disease: Code(s): M35.9 - Systemic involvement of connective tissue, unspecified Status: Acute Plan Cellulitis with sepsis -WBC elevated 18.5-->16.1-->14.5-->12.7 today. -Receiving broad spectrum antibiotic coverage with Vanco and Zosyn. Vanco trough 03/25/23 at 1000 was 6.2. Dosing per pharmacy. -No documented fevers overnight. Body aches improved but still waking up drenched in sweat. Possibly could be related to use of narcotic and antibiotic regimen. Acetaminophen PRN for fever greater than 101. Will repeat cultures should she fever. Current blood cultures with NGTD. -Lactic 4.3 03/25. Administered 2 L of NS with a repeat lactic of 1.0. NS continues at 100 mls per hour. -Pain related to right arm swelling is being treated with [place] 10 mg q 4 prn. Encourage right arm elevation. -Sent for ultrasound today to make sure there wasn't an abscess that needs I&D. Spoke with radiologist and it does not appear like there is enough of a fluid collection to warrant drainage. Clinically her arm has improved each day. Anxiety/ADHD -Unable to restart home medication Dextroamphetamine-amphetamine as it is not on formulary. Nurse asked patient if her could bring in her home meds but the patient says she will be fine without it. -Venlafaxine 150 mg PO daily Migraine -CT head on admission with no acute intracranial process. -Improved today after prn acetaminophen -PRN Sumatriptan Succinate 25 mg PO as needed Neuropathy -Takes 1200 mg of Gabapentin PO TID. Restarted. Recurrent Miscarriage -A3 -Recent loss at 7 weeks. Pelvic ultrasound obtained with normal sonogram findings. No sonographic evidence of retained products of conception. -HCG <2.39 -Provided emotional support. -cervical culture with Group B Strep Unknown Autoimmune disorder -recent biopsy with Auctioneer Art, Dr. Powell confirming autoimmune process however the patient can not recall name of diagnosis. -follows with Preparation Supervisor, Dr Powell. Subjective Date/time seen: 03/26/23 15:20 Interval history: This is a 37-year-old female who presents to our ER last night with complaints of worsening right arm swelling erythema and tenderness. She states that the day before she was cleaning out her pool and she sustained a bug bite. She went to [facility] where she was given a prescription for doxycycline and discharged home. Later after taking a nap she noticed that her right arm swelling had increased and was traveling up to her elbow. She then came to [place] ER for evaluation. She has a past medical history of ADHD, anxiety and depression, asthma, migraine, neuropathy, recent miscarriage, and new diagnosis of autoimmune disease. She is unsure of the name of the autoimmune disease but she had a biopsy done by Dr. Powell, log processor operator which confirmed diagnosis. And she follows with Dr. Powell, proposal coordinator. She has yet to start on any medications for this. Today she is found lying in bed she appears anxious. She states that she had subjective chills and sweating overnight, she has generalized body aches, and severe tenderness in
[2023-03-26 19:32] VITALS: BP 107/66; PULSE 86; RESP 14; TEMP 36.9; O2SAT 98
[2023-03-26 20:00] VITALS: PULSE 86; RESP 14; O2SAT 98
[2023-03-26] MEDS: SENNA/DOCUSATE SODIUM TABLET 1 TAB PO (20:06)
[2023-03-26] MEDS: IBUPROFEN 600 MG TABLET PO (20:06)
[2023-03-26 23:48] LABS: Vancomycin Trough 33.4 ug/mL (10.0-20.0)
[2023-03-27 04:15] VITALS: BP 107/59; PULSE 71; RESP 14; TEMP 37.2; O2SAT 98
[2023-03-27] MEDS: PIPERACILLN/TAZ 3.375GM/NS50ML 3.375 GM/50 ML BAG IVPB ×2 (05:10→13:11)
[2023-03-27 05:33] LABS: Basophils Absolute Auto 0.1 K/mm3 (0.0-0.1); Basophils Percent Auto 0.8 % (0.2-1.2); Eosinophils Absolute Auto 0.4 K/mm3 (0-0.3); Eosinophils Percent Auto 4.8 % (0-4.4); Hematocrit 33.1 % (37.0-47.0); Hemoglobin 10.5 g/dL (12.0-15.0); Immature Granulocyte Absolute 0.03 K/mm3 (0.00-0.031); Immature Granulocyte Percent A 0.4 % (0-0.5); Lymphocytes Absolute Auto 1.24 K/mm3 (0.9-3.2); Mean Corpuscular HGB Conc 31.7 g/dl (32-36); Mean Corpuscular Hemoglobin 27.1 pg (26-34); Mean Corpuscular Volume 85.5 fl (80-100); Mean Platelet Volume 12.5 fl (7.4-10.4); Monocytes Absolute Auto 0.8 K/mm3 (0.1-0.6); Monocytes Percent Auto 9.7 % (2.6-8.5); Neutrophils Absolute Auto 5.3 K/mm3 (1.3-6.7); Neutrophils Percent Auto 68.3 % (45.5-73.1); Platelet Count Result 229 k/mm3 (150-375); Red Blood Count 3.87 M/mm3 (4.2-5.4); White Blood Count 7.8 K/mm3 (4.5-10.0)
[2023-03-27 05:49] LABS: Anion Gap 9 mmol/L (8-16); Blood Urea Nitrogen 6 mg/dL (7-17); Calcium 8.1 mg/dL (8.4-10.2); Carbon Dioxide 22 mmol/L (22-30); Chloride 108 mmol/L (98-107); Estimated Glomerular Filt Rate 51; Glucose 83 mg/dL (65-110); Potassium 3.3 mmol/L (3.4-5.0); Sodium 139 mmol/L (137-145)
[2023-03-27] MEDS: VENLAFAXINE HCL XR 75 MG CAP.ER.24H 150 MG PO (08:30)
[2023-03-27] MEDS: GABAPENTIN 400 MG CAPSULE 1200 MG PO ×3 (08:30→17:45)
[2023-03-27] MEDS: ENOXAPARIN 40 MG/0.4 ML SYRINGE SUB-Q (08:30)
[2023-03-27] MEDS: IBUPROFEN 600 MG TABLET PO (11:09)
[2023-03-27] MEDS: LACTATED RINGERS 1,000 ML 999 ML IV CONT (13:10)
[2023-03-27] MEDS: POTASSIUM CHLORIDE 20 MEQ PACKET (FOR LIQUID) 40 MEQ PO (13:10)
[2023-03-27 14:00] VITALS: BP 107/60; PULSE 80; RESP 16; TEMP 36.8; O2SAT 100
--- NOTE | 2023-03-27 14:45 | PM.IMPN ---
Progress Note: A&P Assessment and Plan (1) Cellulitis: Qualifiers: Laterality: right Site of cellulitis: extremity Site of cellulitis of extremity: upper extremity Qualified Code(s): L03.113 - Cellulitis of right upper limb Code(s): L03.90 - Cellulitis, unspecified Status: Acute (2) Sepsis: Qualifiers: Sepsis acute organ dysfunction status: without acute organ dysfunction Sepsis type: sepsis due to unspecified organism Qualified Code(s): A41.9 - Sepsis, unspecified organism Code(s): A41.9 - Sepsis, unspecified organism Status: Acute (3) Anxiety and depression: Code(s): F41.9 - Anxiety disorder, unspecified; F32.A - Depression, unspecified Status: Acute (4) Headache: Code(s): R51.9 - Headache, unspecified Status: Acute (5) Autoimmune disease: Code(s): M35.9 - Systemic involvement of connective tissue, unspecified Status: Acute Plan Cellulitis with sepsis -WBC elevated 18.5-->16.1-->14.5-->12.7-->7.8 today. -Stopping IV antibiotics and transitioning to PO doxycycline and amoxicillin for a seven day course. -No documented fevers overnight. Body aches improved but still waking up drenched in sweat. Possibly could be related to use of narcotic and antibiotic regimen. Acetaminophen PRN for fever greater than 101. Will repeat cultures should she fever. Current blood cultures NGTD. Preliminary wound culture gram stain shows moderate WBCs and few gram positive cocci. -Lactic 4.3 03/25. Administered 2 L of NS with a repeat lactic of 1.0. NS continues at 100 mls per hour. -Pain related to right arm swelling is being treated with [place] 10 mg q 4 prn and Ibuprofen. Encourage right arm elevation. -Sent for ultrasound today to make sure there wasn't an abscess that needs I&D. Spoke with radiologist and it does not appear like there is enough of a fluid collection to warrant drainage. Clinically her arm has improved each day. -Medication induced ANH, Scr 1.2. Will give 1 L bolus of LR and re-check BMP. If patient's afternoon Scr is improved then she can discharge home today. Otherwise, will wait for am labs and discharge tomorrow. Anxiety/ADHD -Unable to restart home medication Dextroamphetamine-amphetamine as it is not on formulary. Nurse asked patient if her could bring in her home meds but the patient says she will be fine without it. -Venlafaxine 150 mg PO daily Migraine -CT head on admission with no acute intracranial process. -Improved today after prn acetaminophen -PRN Sumatriptan Succinate 25 mg PO as needed Neuropathy -Takes 1200 mg of Gabapentin PO TID. Restarted. Recurrent Miscarriage -A3 -Recent loss at 7 weeks. Pelvic ultrasound obtained with normal sonogram findings. No sonographic evidence of retained products of conception. -HCG <2.39 -Provided emotional support. -cervical culture with Group B Strep Unknown Autoimmune disorder -recent biopsy with Ping Pong Table Assembler, Dr. Powell confirming autoimmune process however the patient can not recall name of diagnosis. -follows with Payable Processor, Dr Powell. Subjective Date/time seen: 03/27/23 14:45 Interval history: This is a 37-year-old female who presents to our ER last night with complaints of worsening right arm swelling erythema and tenderness. She states that the day before she was cleaning out her pool and she sustained a bug bite. She went to [facility] where she was given a prescription for doxycycline and discharged home. Later after taking a nap she noticed that her right arm swelling had increased and was traveling up to her elbow. She then came to [place] ER for evaluation. She has a past medical history of ADHD, anxiety and depression, asthma, migraine, neuropathy, recent miscarriage, and new diagnosis of autoimmune disease. She is unsure of the name of the autoimmune disease but she had a biopsy done by Dr. Powell, airport planner which confirmed diag
[2023-03-27 16:42] LABS: Anion Gap 4 mmol/L (8-16); Blood Urea Nitrogen 7 mg/dL (7-17); Calcium 8.2 mg/dL (8.4-10.2); Carbon Dioxide 23 mmol/L (22-30); Chloride 110 mmol/L (98-107); Estimated Glomerular Filt Rate 47; Glucose 81 mg/dL (65-110); Potassium 4.3 mmol/L (3.4-5.0); Sodium 137 mmol/L (137-145)
[2023-03-27] MEDS: LACTATED RINGERS 1,000 ML 100 ML IV CONT (17:45)
[2023-03-27] MEDS: HYDROcodone/acetaminophen (*CRX) 10-325 MG TABLET 1 TAB PO ×2 (17:47→21:48)
[2023-03-27 20:12] VITALS: BP 110/70; PULSE 83; RESP 16; TEMP 36.9; O2SAT 97
[2023-03-27] MEDS: SENNA/DOCUSATE SODIUM TABLET 1 TAB PO (20:36)
[2023-03-27] MEDS: AMOXICILLIN 500 MG CAPSULE PO (20:36)
[2023-03-27] MEDS: ONDANSETRON INJ 4 MG/2 ML VIAL IV PUSH (20:36)
[2023-03-28 04:19] VITALS: BP 117/81; PULSE 84; RESP 16; TEMP 37; O2SAT 99
[2023-03-28] MEDS: HYDROcodone/acetaminophen (*CRX) 10-325 MG TABLET 1 TAB PO ×3 (04:30→19:48)
[2023-03-28] MEDS: AMOXICILLIN 500 MG CAPSULE PO ×3 (04:31→19:49)
[2023-03-28] MEDS: LACTATED RINGERS 1,000 ML 100 ML IV CONT ×3 (04:32→19:49)
[2023-03-28 06:04] LABS: Basophils Absolute Auto 0.1 K/mm3 (0.0-0.1); Basophils Percent Auto 0.8 % (0.2-1.2); Eosinophils Absolute Auto 0.4 K/mm3 (0-0.3); Eosinophils Percent Auto 6.5 % (0-4.4); Hematocrit 32.5 % (37.0-47.0); Hemoglobin 10.1 g/dL (12.0-15.0); Immature Granulocyte Absolute 0.02 K/mm3 (0.00-0.031); Immature Granulocyte Percent A 0.3 % (0-0.5); Lymphocytes Absolute Auto 1.11 K/mm3 (0.9-3.2); Lymphocytes Percent Auto 17.6 % (18.3-44.2); Mean Corpuscular HGB Conc 31.1 g/dl (32-36); Mean Corpuscular Hemoglobin 26.5 pg (26-34); Mean Corpuscular Volume 85.3 fl (80-100); Mean Platelet Volume 12.5 fl (7.4-10.4); Monocytes Absolute Auto 0.7 K/mm3 (0.1-0.6); Neutrophils Percent Auto 63.8 % (45.5-73.1); Platelet Count Result 231 k/mm3 (150-375); Red Blood Count 3.81 M/mm3 (4.2-5.4); Red Cell Distribution Width 12.8 % (11.5-14.5); White Blood Count 6.3 K/mm3 (4.5-10.0)
[2023-03-28 06:15] LABS: Anion Gap 7 mmol/L (8-16); Blood Urea Nitrogen 5 mg/dL (7-17); Calcium 8.1 mg/dL (8.4-10.2); Carbon Dioxide 26 mmol/L (22-30); Chloride 106 mmol/L (98-107); Estimated Glomerular Filt Rate 43; Glucose 85 mg/dL (65-110); Magnesium 2.1 mg/dL (1.6-2.3); Potassium 3.6 mmol/L (3.4-5.0); Sodium 139 mmol/L (137-145)
[2023-03-28] MEDS: DOXYCYCLINE HYCLATE 100 MG TABLET PO ×2 (09:38→19:49)
[2023-03-28] MEDS: VENLAFAXINE HCL XR 75 MG CAP.ER.24H 150 MG PO (09:38)
[2023-03-28] MEDS: GABAPENTIN 400 MG CAPSULE 1200 MG PO ×3 (09:38→16:15)
[2023-03-28] MEDS: ENOXAPARIN 40 MG/0.4 ML SYRINGE SUB-Q (09:39)
--- NOTE | 2023-03-28 11:47 | PCCCNOTE ---
On 03/28/23, the student, [Danelle Cordova], provided care and completed [facility] documentation on this patient. I have reviewed the student's documentation and agree with the findings.
[2023-03-28 12:33] VITALS: BP 131/93; PULSE 83; RESP 16; TEMP 36.9; O2SAT 97
--- NOTE | 2023-03-28 12:45 | P.PNIM_ITS ---
Progress Note: A&P Assessment and Plan (1) Cellulitis: Qualifiers: Laterality: right Site of cellulitis: extremity Site of cellulitis of extremity: upper extremity Qualified Code(s): L03.113 - Cellulitis of right upper limb Code(s): L03.90 - Cellulitis, unspecified Status: Acute Assessment and Plan: * WBC better today at 6.3 * Continue PO doxycycline and amoxicillin for a seven day course. * Preliminary wound culture gram stain shows moderate WBCs and few gram positive cocci. * Lactic 4.3 03/25. Administered 2 L of NS with a repeat lactic of 1.0. NS continues at 100 mls per hour. * [place] 10 mg q 4 prn and Ibuprofen. Encourage right arm elevation. * Ultrasound No appearance that there is enough of a fluid collection to warrant drainage. * Appears to be worse today with significant amount of drainage * Wound consult * Consulted Dr. Dunham for further recommendations * CT of the arm does appear to have some tracking and abscess that appears to be drained with no further pocketing noted * Continue to trend symptoms (2) Sepsis: Qualifiers: Sepsis acute organ dysfunction status: without acute organ dysfunction Sepsis type: sepsis due to unspecified organism Qualified Code(s): A41.9 - Sepsis, unspecified organism Code(s): A41.9 - Sepsis, unspecified organism Status: Acute Assessment and Plan: * See above (3) Anxiety and depression: Code(s): F41.9 - Anxiety disorder, unspecified; F32.A - Depression, unspecified Status: Acute Assessment and Plan: * Continue home medications as indicated (4) Headache: Qualifiers: Headache type: tension-type Headache chronicity pattern: acute headache Intractability: intractable Qualified Code(s): G44.201 - Tension-type headache, unspecified, intractable Code(s): R51.9 - Headache, unspecified Status: Acute Assessment and Plan: * CT head on admission with no acute intracranial process. * Improved today after prn acetaminophen * PRN Sumatriptan Succinate 25 mg PO as needed (5) Autoimmune disease: Code(s): M35.9 - Systemic involvement of connective tissue, unspecified Status: Acute Assessment and Plan: * recent biopsy with Supervisor Pullet Farm, Dr. Powell confirming autoimmune process however the patient can not recall name of diagnosis. * follows with Clip Loading Machine Feeder, Dr Powell. (6) ANH (acute kidney injury): Code(s): N17.9 - Acute kidney failure, unspecified Status: Acute Assessment and Plan: * Creatinine is elevated at 1.50 today * most likely related to medications * Continue to trend * Continue IV fluids * consider nephrology if continues to worsen. Plan Time Spent With Patient Time: 56 minutes Time with patient: Greater than 35 minutes Subjective Date/time seen: 03/28/23 1245 Interval history: 03/24/23 This is a 37-year-old female who presents to our ER last night with complaints of worsening right arm swelling erythema and tenderness. She states that the day before she was cleaning out her pool and she sustained a bug bite. She went to [facility] where she was given a prescription for doxycycline and discharged home. Later after taking a nap she noticed that her right arm swell ing had increased and was traveling up to her elbow. She then came to [facility] for evaluation. She has a past medi
--- NOTE | 2023-03-28 12:45 | PM.IMPN ---
Progress Note: A&P Assessment and Plan (1) Cellulitis: Qualifiers: Laterality: right Site of cellulitis: extremity Site of cellulitis of extremity: upper extremity Qualified Code(s): L03.113 - Cellulitis of right upper limb Code(s): L03.90 - Cellulitis, unspecified Status: Acute Assessment and Plan: WBC better today at 6.3 Continue PO doxycycline and amoxicillin for a seven day course. Preliminary wound culture gram stain shows moderate WBCs and few gram positive cocci. Lactic 4.3 03/25. Administered 2 L of NS with a repeat lactic of 1.0. NS continues at 100 mls per hour. [place] 10 mg q 4 prn and Ibuprofen. Encourage right arm elevation. Ultrasound No appearance that there is enough of a fluid collection to warrant drainage. Appears to be worse today with significant amount of drainage Wound consult Consulted Dr. Dunham for further recommendations CT of the arm does appear to have some tracking and abscess that appears to be drained with no further pocketing noted Continue to trend symptoms (2) Sepsis: Qualifiers: Sepsis acute organ dysfunction status: without acute organ dysfunction Sepsis type: sepsis due to unspecified organism Qualified Code(s): A41.9 - Sepsis, unspecified organism Code(s): A41.9 - Sepsis, unspecified organism Status: Acute Assessment and Plan: See above (3) Anxiety and depression: Code(s): F41.9 - Anxiety disorder, unspecified; F32.A - Depression, unspecified Status: Acute Assessment and Plan: Continue home medications as indicated (4) Headache: Qualifiers: Headache type: tension-type Headache chronicity pattern: acute headache Intractability: intractable Qualified Code(s): G44.201 - Tension-type headache, unspecified, intractable Code(s): R51.9 - Headache, unspecified Status: Acute Assessment and Plan: CT head on admission with no acute intracranial process. Improved today after prn acetaminophen PRN Sumatriptan Succinate 25 mg PO as needed (5) Autoimmune disease: Code(s): M35.9 - Systemic involvement of connective tissue, unspecified Status: Acute Assessment and Plan: recent biopsy with Wage And Salary Specialist, Dr. Powell confirming autoimmune process however the patient can not recall name of diagnosis. follows with Financial Services Counselor, Dr Powell. (6) ANH (acute kidney injury): Code(s): N17.9 - Acute kidney failure, unspecified Status: Acute Assessment and Plan: Creatinine is elevated at 1.50 today most likely related to medications Continue to trend Continue IV fluids consider nephrology if continues to worsen. Plan Time Spent With Patient Time: 56 minutes Time with patient: Greater than 35 minutes Subjective Date/time seen: 03/28/23 1245 Interval history: 03/24/23 This is a 37-year-old female who presents to our ER last night with complaints of worsening right arm swelling erythema and tenderness. She states that the day before she was cleaning out her pool and she sustained a bug bite. She went to [facility] where she was given a prescription for doxycycline and discharged home. Later after taking a nap she noticed that her right arm swelling had increased and was traveling up to her elbow. She then came to [facility] for evaluation. She has a past medical history of ADHD, anxiety and depression, asthma, migraine, neuropathy, recent miscarriage, and new diagnosis of autoimmune disease. She is unsure of the name of the autoimmune disease but she had a biopsy done by Dr. Powell, utilization management nurse which confirmed diagnosis. And she follows with Dr. Powell, joint setter. She has yet to start on any medications for this. Today she is found lying in bed she appears anxious. She states that she had subjective chills and sweating overnight, she has generalized body
[2023-03-28] MEDS: MORPHINE SULFATE (*CRX) 2 MG/ML INJ 1 MG IV PUSH (13:00)
[2023-03-28] MEDS: SUMAtriptan SUCCINATE 25 MG TABLET PO ×2 (16:14→18:07)
[2023-03-28 17:10] VITALS: BP 145/83; PULSE 77; RESP 16; TEMP 36.3; O2SAT 98
--- NOTE | 2023-03-28 17:59 | WPDCN ---
Assessment and Plan Assessment and plan (1) Cellulitis: Qualifiers: Laterality: right Site of cellulitis: extremity Site of cellulitis of extremity: upper extremity Qualified Code(s): L03.113 - Cellulitis of right upper limb Code(s): L03.90 - Cellulitis, unspecified Status: Acute Assessment and Plan: Persists. S. aureus. Responding to IV antibiotics and spontaneous drainage. (2) Abscess of forearm, right: Code(s): L02.413 - Cutaneous abscess of right upper limb Status: Acute Assessment and Plan: May be adequately drained. Further debridement is under consideration. Plan Continue current care and reevaluate daily. HPI Data of Consult Date/Time: 03/28/23 17:59 Requesting Physician: Isaak Sanchez MD Primary Care Provider: Jarek Ray, HARDBOARD GRINDER Consult Narrative Narrative: Cherelle Yates is a 37 year old female admitted last night for cellulitis in the right upper extremity. This may have started March 22, the day before. She is not certain of the etiology but did present to [facility] on the and was given some doxycycline. She presented here later the same day with pain swelling and erythema from shoulder to hand she says.There was a small drainage tract at the most tender site. Based on symptoms, her history of an unspecified autoimmune disease and lab information she was admitted for IV antibiotics. Her white count at that time was 18.5. She was afebrile. Her CRP was 5.1. She reported headaches. Her liver enzymes and creatinine were normal. She was given IV vancomycin and Rocephin. Her white count has steadily diminished each day until is now within normal range. She has had brief elevation in lactic acid to 4.3 on the day after admission, but was reported within normal limits the same morning. C-reactive protein had risen to 18.3 on the , no subsequent report. Group B strep has been isolated from her cervix and S. aureus from arm wound. CT of the arm found no sign of abscess except a small drainage tract connected to skin. Today at a dressing change a large quantity of greenish purulent fluid gushed from the small wound. A nurse from the wound and ostomy center probed the subcutaneous cavity to about 2cm. [facility] Past Medical History Medical History ADHD (attention deficit hyperactivity disorder) Anxiety and depression Autoimmune disease History of asthma Migraine headache without aura Neuropathy Surgical History Surgical History [place] teeth extracted Family History Family History Father Alcoholism Hyperthyroidism Cerebrovascular accident Grandparent Diabetes mellitus Liver cancer Malignant neoplasm of prostate Sibling Hemochromatosis Migraine Social History Social History (Updated 03/24/23 @ 00:06 by Mirian Wheat NP) Social History: she lives with her . She has one son who has cerebral palsy and one step son cerebral palsey . The patient vapes and uses marijuana. She is a [id number] mother. Code status full code Smoking status: Current every day smoker Tobacco type: e-cigarettes/vaping Alcohol intake: never Substance use: current Substance use type: marijuana Lack of Transportation: No Lack of Food: Never True Current Housing: I Have Housing Concerned About Future Housing: No Difficulty Paying Gas/Electric Bills: No Difficulty Paying for Meds: No Currently Unemployed: No Education: Don't Know Difficulty w/ Childcare or Family Care: No Living arrangements: with family Gender identity (if verbalized by the patient): Female Spiritual care concerns: No Meds Home Medications and Allergies Home Medications Medication Instructions Recorded Confirmed Type dextroamphetamine-a
[2023-03-28 19:44] VITALS: BP 134/89; PULSE 65; RESP 18; TEMP 36.8; O2SAT 98
[2023-03-28] MEDS: SENNA/DOCUSATE SODIUM TABLET 1 TAB PO (19:49)
[2023-03-28 21:41] VITALS: O2SAT 98
[2023-03-28 23:54] VITALS: BP 121/85; PULSE 75; RESP 16; TEMP 36.4; O2SAT 98
[2023-03-29 04:09] VITALS: BP 129/90; PULSE 99; RESP 16; TEMP 37; O2SAT 98
[2023-03-29] MEDS: AMOXICILLIN 500 MG CAPSULE PO (04:24)
[2023-03-29] MEDS: HYDROcodone/acetaminophen (*CRX) 10-325 MG TABLET 1 TAB PO ×2 (04:24→10:06)
[2023-03-29 06:02] LABS: Basophils Absolute Auto 0.1 K/mm3 (0.0-0.1); Basophils Percent Auto 0.7 % (0.2-1.2); Eosinophils Absolute Auto 0.4 K/mm3 (0-0.3); Eosinophils Percent Auto 5.6 % (0-4.4); Hemoglobin 9.9 g/dL (12.0-15.0); Immature Granulocyte Absolute 0.03 K/mm3 (0.00-0.031); Immature Granulocyte Percent A 0.4 % (0-0.5); Lymphocytes Absolute Auto 1.32 K/mm3 (0.9-3.2); Lymphocytes Percent Auto 19.6 % (18.3-44.2); Mean Corpuscular HGB Conc 31.9 g/dl (32-36); Mean Corpuscular Hemoglobin 27.3 pg (26-34); Mean Corpuscular Volume 85.4 fl (80-100); Mean Platelet Volume 12.4 fl (7.4-10.4); Monocytes Absolute Auto 0.8 K/mm3 (0.1-0.6); Monocytes Percent Auto 11.3 % (2.6-8.5); Neutrophils Absolute Auto 4.2 K/mm3 (1.3-6.7); Neutrophils Percent Auto 62.4 % (45.5-73.1); Platelet Count Result 243 k/mm3 (150-375); Red Blood Count 3.63 M/mm3 (4.2-5.4); Red Cell Distribution Width 12.8 % (11.5-14.5); White Blood Count 6.7 K/mm3 (4.5-10.0)
[2023-03-29 06:17] LABS: Alanine Aminotransferase 13 U/L (6-35); Albumin Level 3.2 g/dL (3.5-5.1); Alkaline Phosphatase 65 U/L (38-126); Anion Gap 3 mmol/L (8-16); Aspartate Amino Transferase 15 U/L (14-36); Bilirubin,Total 0.2 mg/dL (0.2-1.3); Blood Urea Nitrogen 4 mg/dL (7-17); Calcium 8.2 mg/dL (8.4-10.2); Carbon Dioxide 31 mmol/L (22-30); Chloride 105 mmol/L (98-107); Estimated Glomerular Filt Rate 51; Glucose 87 mg/dL (65-110); Magnesium 1.8 mg/dL (1.6-2.3); Potassium 3.5 mmol/L (3.4-5.0); Sodium 139 mmol/L (137-145)
[2023-03-29] MEDS: VENLAFAXINE HCL XR 75 MG CAP.ER.24H 150 MG PO (10:02)
[2023-03-29] MEDS: DOXYCYCLINE HYCLATE 100 MG TABLET PO (10:02)
[2023-03-29] MEDS: LACTATED RINGERS 1,000 ML 100 ML IV CONT (10:02)
[2023-03-29] MEDS: GABAPENTIN 400 MG CAPSULE 1200 MG PO (10:02)
[2023-03-29] MEDS: ENOXAPARIN 40 MG/0.4 ML SYRINGE SUB-Q (10:05)
--- NOTE | 2023-03-29 10:08 | WPDPN ---
Progress Note: A&P Assessment and Plan (1) Abscess of forearm, right: Code(s): L02.413 - Cutaneous abscess of right upper limb Status: Acute Assessment and Plan: No purulence. Reduced edema under current treatment. (2) Cellulitis: Qualifiers: Laterality: right Site of cellulitis: extremity Site of cellulitis of extremity: upper extremity Qualified Code(s): L03.113 - Cellulitis of right upper limb Code(s): L03.90 - Cellulitis, unspecified Status: Acute Assessment and Plan: Resolving physical signs. Plan OK for discharge . Continue oral antibiotics 10-14 days for staph coverage. May shower and get wound wet. Small daily bandage. F/U with Dr Recinos in one week . Time Spent With Patient Time with patient: less than 15 minutes Subjective Date/time seen: 03/29/23 10:08 Interval history: Resolving cellulitis and abscess right forearm. Exam Narrative: Much less redness, edema and tenderness. Full ROM. Scant serous drainage over night into bandage. Objective Data Vital Signs Vital Signs: Vital Signs - 24 hr 03/28/23 12:33 03/28/23 17:10 03/28/23 19:44 Temperature 98.4 F 97.4 F L 98.3 F Pulse Rate 83 77 65 Respiratory Rate 16 16 18 Blood Pressure 131/93 H 145/83 H 134/89 Pulse Oximetry 97 98 98 Oxygen Delivery 03/28/23 23:54 03/28/23 21:41 03/29/23 04:09 Temperature 97.5 F L 98.6 F Pulse Rate 75 99 Respiratory Rate 16 16 Blood Pressure 121/85 129/90 Pulse Oximetry 98 98 98 Oxygen Delivery Room Air Intake/Output Intake/Output: Intake & Output 03/26/23 03/27/23 03/28/23 03/29/23 23:59 23:59 23:59 23:59 Intake Total 3050 2740 4340 1490 Output Total 350 Balance 2700 2740 4340 1490 Meds/Results Medications: Active Medications Generic Name Dose Route Start Last Admin Trade Name Freq PRN Reason Stop Dose Admin Acetaminophen 650 mg 03/23/23 20:18 03/25/23 09:05 Acetaminophen 325 Mg Tablet PO 650 mg Q4H PRN Administration Fever Hydrocodone Bitart/Acetaminophen 1 tab 03/24/23 10:07 03/24/23 10:31 Hydrocodone/Acetaminophen (*Crx) 5-325 Mg Tablet PO 1 tab ONCE PRN Administration Pain Rated 4-6 Hydrocodone Bitart/Acetaminophen 1 tab 03/24/23 14:00 03/29/23 10:06 Hydrocodone/Acetaminophen (*Crx) 10-325 Mg Tablet PO 1 tab Q4H PRN Administration Pain Rated 7-10 Amoxicillin 500 mg 03/27/23 22:00 03/29/23 04:24 Amoxicillin 500 Mg Capsule PO 04/01/23 23:59 500 mg Q8HR KARLEY Administration Doxycycline Hyclate 100 mg 03/28/23 09:00 03/29/23 10:02 Doxycycline Hyclate 100 Mg Tablet PO 04/01/23 23:59 100 mg Q12HR KARLEY Administration Enoxaparin Sodium 40 mg 03/24/23 09:00 03/29/23 10:05 Enoxaparin 40 Mg/0.4 Ml Syringe SUB-Q 40 mg DAILY KARLEY Administration Gabapentin 1,200 mg 03/24/23 09:00 03/29/23 10:02 Gabapentin 400 Mg Capsule PO 1,200 mg TID KARLEY Administration Lactated Ringer's 1,000 mls @ 100 mls/hr 03/27/23 16:50 03/29/23 10:02 Lr - Lactated Ringers Iv IV CONT 100 mls/hr .Q10H KARLEY Administration Ondansetron HCl 4 mg 03/23/23 20:18 03/27/23 20:36 Ondansetron Inj 4 Mg/2 Ml Vial IV PUSH 4 mg Q4H PRN Administration Nausea Polyethylene Glycol 17 gm 03/24/23 15:22 Polyethylene Glycol 3350 17 Gm Powd.Pack PO QAM PRN Constipation Senna/Docusate Sodium 1 tab 03/24/23 21:00 03/28/23 19:49 Senna/Docusate Sodium Tablet PO 1 tab HS KARLEY Administration Sumatriptan Succinate 25 mg 03/24/23 00:06 03/28/23 18:07 Sumatriptan Succinate 25 Mg Tablet PO 25 mg DIRECTED PRN Administration Migraine Headache Venlafaxine HCl 150 mg 03/24/23 08:00 03/29/23 10:02 Venlafaxine Hcl Xr 75 Mg Cap.Er.24h PO 150 mg DAILY@0800 KARLEY Administration Radiology Results: ITS Impressions Chest X-Ray 03/23/23 17:34 IMPRESSION: No acute cardiopulmonary process. Head CT
--- NOTE | 2023-03-29 10:30 | P.DS_ITS ---
DS: Admitting Diagnosis Discharge Date 03/29/23 Admitting Diagnosis Insect bite with cellulitis DS: Discharge Diagnosis Discharge Diagnosis (1) Cellulitis: Qualifiers: Laterality: right Site of cellulitis: extremity Site of cellulitis of extremity: upper extremity Qualified Code(s): L03.113 - Cellulitis of right upper limb Code(s): L03.90 - Cellulitis, unspecified Status: Acute Assessment and Plan: * WBC better today at 6.3 * Continue PO doxycycline and amoxicillin for a seven day course. * Preliminary wound culture gram stain shows moderate WBCs and few gram positive cocci. * Lactic 4.3 03/25. Administered 2 L of NS with a repeat lactic of 1.0. NS continues at 100 mls per hour. * [place] 10 mg q 4 prn and Ibuprofen. Encourage right arm elevation. * Ultrasound No appearance that there is enough of a fluid collection to warrant drainage. * Appears to be worse today with significant amount of drainage * Wound consult * Consulted Dr. Dunham * CT of the arm does appear to have some tracking and abscess that appears to be drained with no further pocketing noted * Continue to trend symptoms (2) Sepsis: Qualifiers: Sepsis acute organ dysfunction status: without acute organ dysfunction Sepsis type: sepsis due to unspecified organism Qualified Code(s): A41.9 - Sepsis, unspecified organism Code(s): A41.9 - Sepsis, unspecified organism Status: Acute Assessment and Plan: * See above (3) Anxiety and depression: Code(s): F41.9 - Anxiety disorder, unspecified; F32.A - Depression, unspecified Status: Acute Assessment and Plan: * Continue home medications as indicated (4) Headache: Qualifiers: Headache type: tension-type Headache chronicity pattern: acute headache Intractability: intractable Qualified Code(s): G44.201 - Tension-type headache, unspecified, intractable Code(s): R51.9 - Headache, unspecified Status: Acute Assessment and Plan: * CT head on admission with no acute intracranial process. * Improved today after prn acetaminophen * PRN Sumatriptan Succinate 25 mg PO as needed (5) Autoimmune disease: Code(s): M35.9 - Systemic involvement of connective tissue, unspecified Status: Acute Assessment and Plan: * recent biopsy with Shirt Presser, Dr. Powell confirming autoimmune process however the patient can not recall name of diagnosis. * follows with Public Health Training Assistant, Dr Powell. (6) ANH (acute kidney injury): Code(s): N17.9 - Acute kidney failure, unspecified Status: Acute Assessment and Plan: * Creatinine is elevated at 1.50 today * most likely related to medications * Continue to trend * Continue IV fluids * consider nephrology if continues to worsen. Plan DS: Summary Hospital Course Hospital Course: This is a 37-year-old female with a history of migraine, asthma and ADHD that presented to the ED on 03/23/2023 for evaluation of redness, swelling and pain in her right wrist and forearm. Patient had been bit by a bug the night prior when she woke up she presented with those symptoms. She was seen at [facility] and was prescribed doxycycline. She took this medication for 1 day and her symptoms continued to worsen. On presentation patient's white blood cell count was 18.5., lactic acid 4.3 and CRP of 18.3. Lactic acid normalized after IV f
--- NOTE | 2023-03-29 10:30 | PM.DS ---
DS: Admitting Diagnosis Discharge Date 03/29/23 Admitting Diagnosis Insect bite with cellulitis DS: Discharge Diagnosis Discharge Diagnosis (1) Cellulitis: Qualifiers: Laterality: right Site of cellulitis: extremity Site of cellulitis of extremity: upper extremity Qualified Code(s): L03.113 - Cellulitis of right upper limb Code(s): L03.90 - Cellulitis, unspecified Status: Acute Assessment and Plan: WBC better today at 6.3 Continue PO doxycycline and amoxicillin for a seven day course. Preliminary wound culture gram stain shows moderate WBCs and few gram positive cocci. Lactic 4.3 03/25. Administered 2 L of NS with a repeat lactic of 1.0. NS continues at 100 mls per hour. [place] 10 mg q 4 prn and Ibuprofen. Encourage right arm elevation. Ultrasound No appearance that there is enough of a fluid collection to warrant drainage. Appears to be worse today with significant amount of drainage Wound consult Consulted Dr. Dunham CT of the arm does appear to have some tracking and abscess that appears to be drained with no further pocketing noted Continue to trend symptoms (2) Sepsis: Qualifiers: Sepsis acute organ dysfunction status: without acute organ dysfunction Sepsis type: sepsis due to unspecified organism Qualified Code(s): A41.9 - Sepsis, unspecified organism Code(s): A41.9 - Sepsis, unspecified organism Status: Acute Assessment and Plan: See above (3) Anxiety and depression: Code(s): F41.9 - Anxiety disorder, unspecified; F32.A - Depression, unspecified Status: Acute Assessment and Plan: Continue home medications as indicated (4) Headache: Qualifiers: Headache type: tension-type Headache chronicity pattern: acute headache Intractability: intractable Qualified Code(s): G44.201 - Tension-type headache, unspecified, intractable Code(s): R51.9 - Headache, unspecified Status: Acute Assessment and Plan: CT head on admission with no acute intracranial process. Improved today after prn acetaminophen PRN Sumatriptan Succinate 25 mg PO as needed (5) Autoimmune disease: Code(s): M35.9 - Systemic involvement of connective tissue, unspecified Status: Acute Assessment and Plan: recent biopsy with Equipment Technician, Dr. Powell confirming autoimmune process however the patient can not recall name of diagnosis. follows with Correspondence Dictator, Dr Powell. (6) ANH (acute kidney injury): Code(s): N17.9 - Acute kidney failure, unspecified Status: Acute Assessment and Plan: Creatinine is elevated at 1.50 today most likely related to medications Continue to trend Continue IV fluids consider nephrology if continues to worsen. Plan DS: Summary Hospital Course Hospital Course: This is a 37-year-old female with a history of migraine, asthma and ADHD that presented to the ED on 03/23/2023 for evaluation of redness, swelling and pain in her right wrist and forearm. Patient had been bit by a bug the night prior when she woke up she presented with those symptoms. She was seen at [facility] and was prescribed doxycycline. She took this medication for 1 day and her symptoms continued to worsen. On presentation patient's white blood cell count was 18.5., lactic acid 4.3 and CRP of 18.3. Lactic acid normalized after IV fluids. Blood cultures drawn and she was started on vancomycin and Zosyn. White blood cell count normalized with antibiotic treatment. Ultrasound done revealed no abscess present and there was not enough fluid collection to warrant drainage. Zosyn and vancomycin together caused an ANH and these were discontinued and patient was transition to oral antibiotics. BUN and creatinine improved with transition to oral antibiotics. After couple days patient's symptoms and not seem to be improving much and a CT
== END 2023-03-29 12:34 | disposition home or self-care (01) | DRG 872 ==
LOC: ANHED 20:23 → ANH3MED 21:11
PROVIDERS: Nurse Practitioner; Nurse Practitioner Acute Care; Admitting Provider Internal Medicine; Emergency Provider Physician Assistant; PCP Nurse Practitioner Family; Visit Provider Internal Medicine Critical Care Medicine
DX: A41.9 Sepsis, unspecified organism (principal); L03.113 Cellulitis of right upper limb; N17.9 Acute kidney failure, unspecified; L02.413 Cutaneous abscess of right upper limb; B95.62 Methicillin resistant Staphylococcus aureus infection as the cause of diseases classified elsewhere; B95.1 Streptococcus, group B, as the cause of diseases classified elsewhere; E87.6 Hypokalemia; F17.290 Nicotine dependence, other tobacco product, uncomplicated; F90.9 Attention-deficit hyperactivity disorder, unspecified type; F41.9 Anxiety disorder, unspecified; F32.A Depression, unspecified; G62.9 Polyneuropathy, unspecified; G44.201 Tension-type headache, unspecified, intractable; J45.909 Unspecified asthma, uncomplicated; M35.9 Systemic involvement of connective tissue, unspecified; Z20.822 Contact with and (suspected) exposure to COVID-19
CPT/HCPCS: 36415; 70450; 71045; 73201; 76856; 76882; 80048; 80053; 80202; 81001; 83605; 83735; 84443; 84702; 85025; 85027; 85610; 85652; 85730; 86140; 87040; 87070; 87147; 87181; 87186; 87205; 87491; 87591; 87636; 87808; 94640; 96361; 96366; 96367; 96372; 96374; 96375; 99285; A9270; G0378; J1650; J1885; J2060; J2270; J2405; J2543; J3370; J7030; J7120; Q9967

== ENCOUNTER 2023-04-20 15:47 | Emergency (ER) | payer SELFPAY ==
[2023-04-20] VITALS (11 sets, daily range): BP systolic 122–159; BP diastolic 72–105; PULSE 53–103; RESP 16–19; TEMP 36.3–36.8; O2SAT 94–100
--- NOTE | ~2023-04-20 | CT_ITS ---
EXAMINATION: CT facial bones w con DATE: 04/20/2023 19:26 INDICATION: Right facial swelling. TECHNIQUE: Computed tomography (CT) of the facial bones and maxillofacial region was performed with 7 5 mL Omnipaque 350 intravenous contrast. Automated exposure control and iterative reconstruction tech Lyatissque were employed. The dose-length product was 270.03 mGy-cm. COMPARISON: None. FINDINGS: There is right face soft tissue swelling. No abscess. There are no pathologically enlarged lymph nodes. The orbits are normal. The teeth are unremarkable. IMPRESSION: 1. Right face soft tissue swelling. No abscess. Reviewed, dictated and finalized at location E.
--- NOTE | 2023-04-20 18:16 | ED.SKABFB ---
HPI - Skin/Abscess/Foreign Bdy General Chief complaint: Skin/Abscess/Foreign Body Stated complaint: swelling to face/neck Time Seen by Provider: 04/20/23 17:17 History of Present Illness HPI narrative: 37-year-old female with history of sepsis, cellulitis, MRSA, unknown autoimmune disease reports for evaluation for erythema and swelling to the right side of her face since yesterday. Patient states she normally develops abnormal lesions and ulcerations secondary to her autoimmune disease. She is followed by Dr. Powell, head trimmer. Her symptoms started yesterday with a mild amount of erythema and pain, states she did not sleep last night because she felt the swelling extending down into her neck and was scared that it was going to close off her airway. States today the erythema and edema to her cheek is significantly worsened, reports her lesions do not normally present like this. She sent a picture of her face to Dr. Mooney advised her to come to the ED given her recent history of MRSA, cellulitis that required hospitalization from 03/23 to 03/29. She denies compromise of her airway but states it the facial swelling makes her feel claustrophobic and feels as it is extending down to her neck. She denies fever, nausea or vomiting, sore throat, neck pain. States the pain is extending up into her right ear and is associated with a tension headache that is unchanged from her normal headaches. She denies vision changes, focal numbness or weakness. Patient is also reporting inflamed taste buds since yesterday. Related Data Home Medications Medication Instructions Recorded Confirmed dextroamphetamine-amphetamine ER 30 mg PO DAILY 11/03/21 03/23/23 30 mg 24hr capsule,extend release sumatriptan succinate 25 mg tablet 25 mg PO DIRECTED PRN Migraine 11/03/21 03/23/23 Headache venlafaxine 150 mg 150 mg PO DAILY 11/03/21 03/23/23 capsule,extended release 24 hr dextroamphetamine-amphetamine 10 10 mg PO HS 03/23/23 03/23/23 mg tablet gabapentin 600 mg tablet 1,200 mg PO TID 03/23/23 03/23/23 Allergies Allergy/AdvReac Type Severity Reaction Status Date / Time sulfamethoxazole Allergy Unknown RASH Verified 08/28/22 17:36 trimethoprim Allergy Unknown RASH Verified 08/28/22 17:36 amoxicillin [From Augmentin] AdvReac Nausea Verified 08/28/22 17:36 clavulanic acid AdvReac Nausea Verified 08/28/22 17:36 [From Augmentin] Review of Systems Review of Systems: CONSTITUTIONAL: Denies fever, chills EYES: Denies visual changes, redness, or discharge. ENT: Denies rhinorrhea, congestion, sore throat, or otalgia. CARDIOVASCULAR: Denies chest pain, palpitations, or edema. RESPIRATORY: Denies cough or dyspnea. GASTROINTESTINAL: Denies abdominal pain, nausea, vomiting, or diarrhea. GENITOURINARY: Denies dysuria or hematuria. SKIN: See HPI MUSCULOSKELETAL: Denies back pain, joint pain, or myalgia. NEUROLOGIC: See HPI PSYCHIATRIC: Denies anxiety or depression. [facility] Past Medical History Medical History ADHD (attention deficit hyperactivity disorder) Anxiety and depression Autoimmune disease History of asthma Migraine headache without aura Neuropathy Surgical History Surgical History [place] teeth extracted Family History Family History Father Alcoholism Hyperthyroidism Cerebrovascular accident Grandparent Diabetes mellitus Liver cancer Malignant neoplasm of prostate Sibling Hemochromatosis Migraine Social History Social History Social History: she lives with her . She has one son who has cerebral palsy and one step son cerebral palsey . The patient vapes and uses marijuana. She is a [id number] mother. Code status full code Smoking status: Current every day smoker
[2023-04-20] MEDS: SODIUM CHLORIDE 0.9% IV 1,000 ML 999 ML IV CONT (18:36)
[2023-04-20 18:48] LABS: Basophils Absolute Auto 0.1 K/mm3 (0.0-0.1); Basophils Percent Auto 0.8 % (0.2-1.2); Eosinophils Absolute Auto 0.3 K/mm3 (0-0.3); Eosinophils Percent Auto 3.9 % (0-4.4); Hematocrit 35.7 % (37.0-47.0); Immature Granulocyte Absolute 0.03 K/mm3 (0.00-0.031); Immature Granulocyte Percent A 0.4 % (0-0.5); Lymphocytes Absolute Auto 1.93 K/mm3 (0.9-3.2); Lymphocytes Percent Auto 22.7 % (18.3-44.2); Mean Corpuscular HGB Conc 33.6 g/dl (32-36); Mean Corpuscular Hemoglobin 26.9 pg (26-34); Mean Platelet Volume 12.8 fl (7.4-10.4); Monocytes Absolute Auto 0.7 K/mm3 (0.1-0.6); Neutrophils Absolute Auto 5.5 K/mm3 (1.3-6.7); Neutrophils Percent Auto 64.2 % (45.5-73.1); Platelet Count Result 280 k/mm3 (150-375); Red Blood Count 4.46 M/mm3 (4.2-5.4); White Blood Count 8.5 K/mm3 (4.5-10.0)
[2023-04-20 19:11] LABS: Alanine Aminotransferase 20 U/L (6-35); Albumin Level 5.2 g/dL (3.5-5.1); Alkaline Phosphatase 97 U/L (38-126); Anion Gap 14 mmol/L (8-16); Aspartate Amino Transferase 27 U/L (14-36); Bilirubin,Total 0.8 mg/dL (0.2-1.3); Blood Urea Nitrogen 20 mg/dL (7-17); CRP 3.6 mg/dL (<1.0); Carbon Dioxide 20 mmol/L (22-30); Chloride 102 mmol/L (98-107); Estimated Glomerular Filt Rate 57; Glucose 86 mg/dL (65-110); Potassium 2.7 mmol/L (3.4-5.0); Sodium 136 mmol/L (137-145)
--- NOTE | 2023-04-20 19:17 | ECG_ITS ---
Measurements Intervals [place] Rate: 74 P: 44 AL: 132 QRS: 79 QRSD: 73 T: 37 QT: 395 QTc: 441 Interpretive Statements SINUS RHYTHM WITH SINUS ARRHYTHMIA NORMAL ECG NO PREVIOUS ECG AVAILABLE FOR COMPARISON Electronically Signed On 04-21-2023 7:46:12 CDT by Armando Wiggins D.O.
[2023-04-20 19:48] LABS: Erythrocyte Sedimentation Rate 25 mm/hr (0-20)
[2023-04-20 20:08] LABS: Magnesium 1.9 mg/dL (1.6-2.3)
[2023-04-20] MEDS: POTASSIUM CHLORIDE 20 MEQ PACKET (FOR LIQUID) 40 MEQ PO (20:32)
[2023-04-20] MEDS: POTASSIUM CHLORIDE INJ 40 MEQ in SODIUM CHLORIDE 0.9% IV 500 ML 130 MEQ IVPB (20:32)
[2023-04-20] MEDS: VANCOMYCIN 1,250 MG/NS 250 ML 1,250 MG/250 ML BAG 166.67 MG IVPB (20:42)
--- NOTE | 2023-04-20 22:05 | PC.NURSE ---
pharm called for [place]
--- NOTE | 2023-04-20 22:07 | PC.NURSE ---
pt sts that
--- NOTE | 2023-04-20 22:10 | PC.NURSE ---
Per PA stop [facility] rider and finish vanc. pt was complaining that her vanc infusion was painful. Iv was intact and had no s/s of infiltrate. pt wanted iv pulled. iv removed
--- NOTE | 2023-04-20 22:21 | PC.NURSE ---
pharm called again for dex
[2023-04-20 22:57] LABS: Anion Gap 12 mmol/L (8-16); Blood Urea Nitrogen 17 mg/dL (7-17); Calcium 8.7 mg/dL (8.4-10.2); Carbon Dioxide 16 mmol/L (22-30); Chloride 109 mmol/L (98-107); Estimated Glomerular Filt Rate > 60; Glucose 75 mg/dL (65-110); Potassium 3.9 mmol/L (3.4-5.0); Sodium 137 mmol/L (137-145)
--- NOTE | 2023-04-20 23:43 | PC.NURSE ---
iv removed with catheter intact. pt understood dc instructions and had time to ask questions. pt was not given a hard RX
--- NOTE | 2023-05-02 00:01 | PC.NURSE ---
iv stop times 00:00 on 04/24/23
== END 2023-04-20 23:44 | disposition home or self-care (01) ==
PROVIDERS: Emergency Provider Physician Assistant; PCP Nurse Practitioner Family
DX: L03.211 Cellulitis of face (principal); G62.9 Polyneuropathy, unspecified; M35.9 Systemic involvement of connective tissue, unspecified; J45.909 Unspecified asthma, uncomplicated; F90.9 Attention-deficit hyperactivity disorder, unspecified type; F41.9 Anxiety disorder, unspecified; F32.A Depression, unspecified; Z86.14 Personal history of Methicillin resistant Staphylococcus aureus infection
CPT/HCPCS: 36415; 70487; 80048; 80053; 83735; 85025; 85652; 86140; 87040; 93005; 96361; 96365; 96366; 96368; 96375; 99284; A9270; J1100; J3370; J3480; J7030; J7040; Q9967

== ENCOUNTER 2023-05-27 14:42 | Emergency (ER) | payer OTHER, MEDICAID, SELFPAY ==
--- NOTE | ~2023-05-27 | XR_ITS ---
EXAMINATION: XR wrist LT min 3V DATE: 05/27/2023 16:02 INDICATION: Left wrist pain TECHNIQUE: Posteroanterior, ulnar deviation, oblique, and lateral views of the left wrist were obtain ed. COMPARISON: None available FINDINGS: No fracture, dislocation, or subluxation. The bones, soft tissues, and joint spaces are nor mal. IMPRESSION: 1. No acute osseous abnormality. Reviewed, dictated and finalized at location F.
[2023-05-27 14:53] VITALS: BP 120/85; PULSE 87; RESP 20; TEMP 36.8; O2SAT 100
--- NOTE | 2023-05-27 14:54 | ED.UPPEXIN ---
HPI - Extremity Injury (Upper) General Chief Complaint: Extremity Injury, Upper Stated Complaint: hurt left wrist Source: patient and RN notes reviewed History of Present Illness HPI narrative: 37 yo F presents to urgent care with son at side. Pt states a week ago she was playing whiffle ball when she was diving into [place] and injured her left wrist. Pt has been having left ulnar side wrist pain ever since. Reports difficulty supinating and using her 4th and 5th fingers without pain. Denies any numbness or tingling. Denies any other injury. Pt has been icing and elevating the wrist as well as babying it this past week with no relief. Pt states her son has cerebral palsy so she is having to carry him a lot and is having difficulty doing so. Related Data Home Medications Medication Instructions Recorded Confirmed dextroamphetamine-amphetamine ER 30 mg PO DAILY 11/03/21 05/27/23 30 mg 24hr capsule,extend release sumatriptan succinate 25 mg tablet 25 mg PO DIRECTED PRN Migraine 11/03/21 05/27/23 Headache venlafaxine 150 mg 150 mg PO DAILY 11/03/21 05/27/23 capsule,extended release 24 hr dextroamphetamine-amphetamine 10 10 mg PO HS 03/23/23 05/27/23 mg tablet gabapentin 600 mg tablet 1,200 mg PO TID 03/23/23 05/27/23 Allergies Allergy/AdvReac Type Severity Reaction Status Date / Time sulfamethoxazole Allergy Unknown RASH Verified 05/27/23 14:58 trimethoprim Allergy Unknown RASH Verified 05/27/23 14:58 amoxicillin [From Augmentin] AdvReac Nausea Verified 05/27/23 14:58 clavulanic acid AdvReac Nausea Verified 05/27/23 14:58 [From Augmentin] Review of Systems Review of Systems: CONSTITUTIONAL: Denies fever, chills, or sweats. EYES: Denies visual changes, redness, or discharge. ENT: Denies otalgia and sore throat CARDIOVASCULAR: Denies chest pain, palpitations, or edema. RESPIRATORY: Denies cough or dyspnea. GASTROINTESTINAL: Denies abdominal pain, nausea, vomiting, or diarrhea. GENITOURINARY: Denies dysuria or hematuria. SKIN: Denies rash or itching. MUSCULOSKELETAL: Left wrist pain NEUROLOGIC: Denies headache, numbness, or weakness. Pertinent positives per HPI. [facility] Past Medical History Medical History ADHD (attention deficit hyperactivity disorder) Anxiety and depression Autoimmune disease History of asthma Migraine headache without aura Neuropathy Surgical History Surgical History [place] teeth extracted Family History Family History Father Alcoholism Hyperthyroidism Cerebrovascular accident Grandparent Diabetes mellitus Liver cancer Malignant neoplasm of prostate Sibling Hemochromatosis Migraine Social History Social History Social History: she lives with her . She has one son who has cerebral palsy and one step son cerebral palsey . The patient vapes and uses marijuana. She is a [id number] mother. Code status full code Smoking status: Current every day smoker Tobacco type: e-cigarettes/vaping Alcohol intake: never Substance use: current Substance use type: marijuana Lack of Transportation: No Lack of Food: Never True Current Housing: I Have Housing Concerned About Future Housing: No Difficulty Paying Gas/Electric Bills: No Difficulty Paying for Meds: No Currently Unemployed: No Education: Don't Know Difficulty w/ Childcare or Family Care: No Living arrangements: with family Gender identity (if verbalized by the patient): Female Spiritual care concerns: No Comments At the time of my signature, I reviewed and agree with the nursing past medical, surgical, social, and family history. There is no relevant family history pertinent to the patient complaint. Exam Narrative:
== END 2023-05-27 16:28 | disposition home or self-care (01) ==
PROVIDERS: Emergency Provider Nurse Practitioner Family; PCP Nurse Practitioner Family
DX: S63.502A Unspecified sprain of left wrist, initial encounter (principal); W21.89XA Striking against or struck by other sports equipment, initial encounter; Y93.69 Activity, other involving other sports and athletics played as a team or group; F90.9 Attention-deficit hyperactivity disorder, unspecified type; F41.9 Anxiety disorder, unspecified; F32.A Depression, unspecified; M35.9 Systemic involvement of connective tissue, unspecified; J45.909 Unspecified asthma, uncomplicated; G62.9 Polyneuropathy, unspecified
CPT/HCPCS: 73110; 99213; G0463

== ENCOUNTER 2025-06-25 08:45 | Emergency (ER) | payer OTHER, SELFPAY ==
[2025-06-25 08:57] VITALS: BP 128/78; PULSE 80; RESP 16; TEMP 36.7; O2SAT 100
--- OUTSIDE RECORDS SUMMARY | 2025-06-25 09:06 | XMS_ITS | Clinical Summary ---
Author Organization [facility] Address [address] [place] [address] Care Team Providers Care Switchboard Troubleshooter Name Role Phone Erlinda Bundy NP Primary Care Provider [phone] Allergies Active Allergy Reactions Criticality Noted Date Comments Sulfa (Sulfonamide Antibiotics) Sulfamethoxazole-Trimethopri m Rash Medium 10/11/2016 Trimethoprim Hives,Rash Reaction: Hives, , Reaction: Rash, Medications gabapentin (NEURONTIN) 600 mg tablet Take 2 tablets (1,200 mg total) by mouth 2 (two) times a day 0 8 Active acetaminophen 500 mg capsuleIndicat ions:Fever,Alexis n Take 2 capsules (1,000 mg total) by mouth every 6 (six) hours as needed (pain). 30 tablet 2 8 Active Additional Information Patient not taking.Reported on 09/19/2024 dextroamphetam ine-amphetamin e XR (ADDERALL XR) 30 mg 24 hr capsule Adderall XR 30 mg capsule,extended release Active dextroamphetam ine-amphetamin e (ADDERALL) 10 mg tablet TAKE 1 TABLET BY MOUTH EVERY AFTERNOON 2 Active SUMAtriptan (IMITREX) 25 mg tablet TAKE 1 TABLET BY MOUTH NEEDED FOR HEADACHE MAY REPEAT ONCE MAX OF 100 MG PER 24 HOURS 2 Active venlafaxine XR (EFFEXOR-XR) 150 mg 24 hr capsule venlafaxine ER 150 mg capsule,extended release 24 hr TAKE 1 CAPSULE BY MOUTH ONCE DAILY Active naproxen (NAPROSYN) 375 mg tablet Take 1 tablet (375 mg total) by mouth 2 (two) times a day with meals P.r.n. pain and swelling. Collaborating physician Oumar White MD 20 tablet 3 Active Additional Information Patient not taking.Reported on 09/19/2024 mupirocin (BACTROBAN) 2 % ointment Apply topically 3 (three) times a day 30 g 3 Active Additional Information Patient not taking.Reported on 09/19/2024 mupirocin (BACTROBAN) 2 % creamIndicatio ns:peritoneal dialysis catheter care Apply topically 2 (two) times a day 30 g 3 Active Additional Information Patient not taking.Reported on 09/19/2024 lidocaine (XYLOCAINE) 5 % ointment Apply topically daily as needed for pain 35.44 g 3 Active Additional Information Patient not taking.Reported on 09/19/2024 tacrolimus (PROTOPIC) 0.1 % ointment Apply topically 2 (two) times a day 60 g 11 3 Active Additional Information Patient not taking.Reported on 09/19/2024 ipratropium-al buteroL (DUO-NEB) 0.5-2.5 mg/3 mL nebulizer solution Inhale 3 mL 4 times a day by nebulization route for 30 days. 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 ? Pyoderma. Derm favors this to be impetigo. Given rash seen in neck, consideration of Morgellons. - Start ceftriaxone for possibly bacterial superinfection; discontinued on discharge. - Culture shows no organism - f/u with derm as oupt. D/c on mupirocin. Skin rash 06/07/2023 Assessment & Plan (06/07/2023 5:13 PM CDT): Recurrent skin lesions which are steroid responsive. She has seen [facility] rheumatology in the past (last visit November 2022) for positive HOLLEY and skin rash with right ear pain/swelling, nose pain/swelling with possibility of relapsing polychondritis. 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 She reports having similar issues for a couple of years in her early 20s and had extensive workup at that time without a diagnosis. She subsequently got better without any intervention until 2020 when she started having these issues again. She reportedly colonoscopy and was told she had multiple ulcerations and was told it was from her NSAID usage. Her colonoscopy from 2011 showed ulceration on ileocecal valve of questionable significance (inflammation vs medication induced). - Now being evaluated by rheum and derm consulted. - F/u with HOLLEY, MASON, complements (C4 nl), inflammatory markers nl, Immunoglobulins nl, C1 inhibitor esterase levels. She will f/u with derm and rheum as outpt. Other migraine without status migrainosus, not i ntractable 06/05/2023 Assessment & Plan (06/07/2023 12:24 AM CDT): Takes sumitriptan prn. Cellulitis of right forearm 03/23/2023 Encounter for induction of labor 05/08/2018 Overview (05/09/2018): -IUPC placed, continue to titrate OT per protocol -Artificial rupture of membranes at 0515 on 05/09/18 -S/p cooks catheter -S/p epidural at 19:41 -S/p misxo x2 Broken foot, left, closed, initial encounter 10/2017 Hemochromatosis carrier 02/13/2018 Anemia 02/08/2018 Chronic bronchitis 02/08/2018 Constitutional short stature 02/08/2018 H/O chronic fatigue syndrome 02/08/2018 Overactive bladder 02/08/2018 Systemic lupus erythematosus 02/08/2018 Vision problems 02/08/2018 Vitamin D deficiency 12/20/2017 Generalized anxiety disorder 12/01/2017 Overview (05/07/2018): - Continue Effexor 75mg qd Assessment & Plan (06/07/2023 12:26 AM CDT): Continue effexor Seizure disorder 12/01/2017 Overview (05/08/2018): - Seizures in the setting of fungal meningitis in 2011 - Continued on Gabapentin 90mg QID since that time with no recurrent seizures Fever 02/21/2014 Overview (01/11/2017): Fever Esophageal erosions 02/21/2014 Overview (01/11/2017): Esophageal erosions Myopathy 04/01/2012 Overview (01/11/2017): Myalgia and myositis Sinus tachycardia 04/01/2012 Overview (01/11/2017): Sinus tachycardia Hypokalemia 04/01/2012 Overview (01/12/2017): Hypokalemia Gastroesophageal reflux disease 06/13/2011 Overview (01/11/2017): Esophageal Reflux Attention deficit disorder of adult with hyperac tivity 06/13/2011 Overview (01/11/2017): Adult ADHD Assessment & Plan (06/07/2023 12:23 AM CDT): Continue adderall Migraine 06/13/2011 Overview (05/08/2018): -History of infrequent migraines, usually induced by stress -Current headache much different that typical migraines Asthma 06/13/2011 Overview (05/08/2018): Stable. -Continue albuterol PRN Resolved Problems Problem Noted Date Diagnosed Date Resolved Date Supervision of high-risk pre gnancy, third trimester 05/07/2018 06/18/2018 Overview (05/09/2018): - GBS status pending, penicillin x 3, last dose at 0107 05/09/18 Preeclampsia, severe, third trimester 04/29/2018 06/18/2018 Overview (05/09/2018): - BP normal to mild range - Continue Mg infusion - s/p Labetalol 20mg IV x2 at OSH on 05/07; Labetalol 20mg on 05/08 recurrent severe range BPs - Continue to closely monitor symptoms, blood pressures - No headache at the moment - APAP prn Iron deficiency anemia alexa almendarez to inadequate dietary iron intake 04/22/2018 8 Overview (05/08/2018): - Continue FeSO4 Short stature 12/01/2017 12/07/2023 Immunizations Immunization Administration Dates Next Due DTaP 5 Pertussis 06/13/2011 Influenza, Quadrivalent, Cait l Culture-based MDCK, Preservative Free, Antibiotic Free, Intramuscular 07/29/2018 Influenza, Quadrivalent, Spl it, Intramuscular 07/27/2017 Influenza, Trivalent, IM (MDV) 07/16/2017 Influenza, Trivalent, Preser vative Free, Intramuscular 07/18/2016 MMR 05/11/2018(Deferred: Other - rubella immune) Tdap 05/11/2018,06/27/2013,06/13/2011 Surgical History Surgery Date Site/Laterality Comments OTHER SURGICAL HISTORY Headache, migraine: daily VAGINAL DELIVERY 05/10/2018 Medical History Medical History Date Comments Attention deficit disorder 2009 ADHD Hx Other Medical 2010 Oral Thrush Hx Other Medical 2010 Gastritis / Ero rosalie Hx Other Medical Panacea Teeth x 4 History of multiple allergies 2002 Al lergies Asthma 2002 Asthma Gastroesophageal reflux disease 2010 GERD Hx Other Medical 2002 Headache, migra ine Hx Other Medical 2010 Recurrent Fever s - 100.5 - 102 Asthma Asthma Hx Other Medical chronic fatigue Hx Other Medical heart problems (unsure what) tachycardia per pt Hx Other Medical over active tiffany dder Hx Other Medical chronic bronchi tis Gastroesophageal reflux disease GERD Anemia Anemia Hx Other Medical Headache, migra ine Hx Other Medical Gastroesophagea l reflux disease Hx Other Medical Lupus Hx Other Medical Chronic sinusit is Hx Other Medical trachobronchiti s Hx Other Medical problems with v ision Hx Other Medical further testing on medical issues Depression Migraines Miscarriage Sinusitis Pneumonia Iritis Chronic fatigue Family History Medical History Relation Name Comments Other Brother 1 PUD; Asthma Brother 2 Asthma; Other Brother 3 ADHD; Gastroesophageal Reflux Disease Father GERD; Hyperthyroidism Father Hyperthyroid ism; Lung cancer Father Cancer, lung; Other Father emphysema; / heart problems; /hypothyroid; Heart attack Maternal Grandfather Myocard ial infarction; Cause of : Myocardial infarction Other Maternal Grandfather hemoch romatosis; Heart attack Maternal Grandmother Myocard ial infarction; Cause of : Myocardial infarction Multiple sclerosis Maternal Grandmother M ultiple sclerosis; Migraines Mother Migraines; Other Mother cystic ovaries ; Other Mother's Brother 1 hemochro matosis; Other Mother's Brother 2 hermochr omatosis; Cancer Other 1 Family history of Cancer -; Other Other 2 Family history of Colitis; Hypertension Other 3 Family history of Hypertension; Hyperthyroidism Other 4 Family histo ry of Hyperthyroidism; Heart disease Other 5 Family history of Heart disease; Brain cancer Paternal Grandfather Cancer -brain; Cause of : Cancer -brain Colon cancer Paternal Grandfather Cancer -colon; Cause of : Cancer -colon Liver cancer Paternal Grandfather Cancer -liver; Cause of : Cancer -liver Lung cancer Paternal Grandfather Cancer -lung; Cause of : Cancer -lung Other Paternal Grandfather heart failure; Pancreatic cancer Paternal Grandfather Ca ncer -pancreatic; Cause of : Cancer -pancreatic Diabetes Paternal Grandmother Diabete s mellitus; Other Sister 3 Alive and well; Other Sister 4 Alive and well; Asthma Sister 5 Asthma; Relation Name Status Comments Brother 1 Brother 2 Brother 3 Father Alive Maternal Grandfather (Age 51) Maternal Grandmother (Age 65) Mother Alive Mother's Brother 1 Mother's Brother 2 Other 1 Other 2 Other 3 Other 4 Other 5 Paternal Grandfather Paternal Grandmother Sister 1 Alive Sister 2 Alive Sister 3 Sister 4 Sister 5 Social History Tobacco Use Types Packs/Day Years Used Date Smoking Tobacco: Former Cigarettes 2 - 2021 Smokeless Tobacco: Never Tobacco Cessation:Counseling Given: Not Answered Alcohol Use Standard Drinks/Week Comments No 0 (1 standard drink = 0.6 oz pur e alcohol) Personal Safety Answer Date Recorded Have you ever been in or are you currently in a harmful physical or emotional relationship or is someone making you feel afraid or unsafe? Denies 06/06/2023 Comments No Sex and Gender Information Value Date Recorded Sex Assigned at Not on file Legal Sex Female 1:10 PM TREER Gender Identity Not on file Sexual Orientation Not on file Obstetrics History Para Term AB IAB SAB Ectopic Multiple Livin g Live Births 2 1 0 1 1 0 1 0 0 1 1 Date Outcome GA Total Labor Labor/2nd/3rd Weight Sex Type Anes PTL Connie A1 A5 Name Clin 2017 33w 0d 0h 27m 0h 24m/0h 03m 1.94 kg (4 lb 4.4 oz) M Vag-S pont Epidur al Y Livin g 3 6 CARLOS SON,B Nura Gandhi MD Delivery Location:[facility] ([facility]) 2022 SAB SAB Last Filed Vital Signs Vital Sign Reading Time Taken Comments Blood Pressure 114/58 09/19/2024 11:10 AM TREER Pulse 68 10/15/2023 8:30 PM TREER Temperature 37.1 C (98.8 F) 10/15/2023 6:15 PM TREER Respiratory Rate 16 10/15/2023 8:30 PM TREER Oxygen Saturation 100% 10/15/2023 8:30 PM TREER Inhaled Oxygen Concentration - - Weight 52.2 kg (115 lb) 09/19/2024 11:10 AM TREER Height 144.8 cm (4' 9) 09/19/2024 11:10 AM TREER Body Mass Index 24.89 09/19/2024 11:10 AM TREER Plan of Treatment Health Maintenance Due Date Last Done Comments Depression Screening 1987 Varicella Vaccines (1 of 2 - 13+ 2-dose series) 2000 Hepatitis B Screening 2005 Pneumococcal vaccine <65 (1 of 2 - PCV) 2006 HPV Vaccines (1 - 3-dose SCD M series) 2014 Influenza Vaccine (#1) 2025 8, 07/27/2017, 07/16/2017, Additional history exists Cervical Cancer Screening 09/19/20252023, 09/19/2024, 11/30/2017 Regular Well Visit/Exam 18-64 09/19/2025 09/19/2024 DTaP/Tdap/Td Vaccine (5 - Td or Tdap) 05/11/2028 05/11/2018, 06/27/2013, 06/13/2011, Additional history exists Hepatitis C Screening Completed 12/19/2017 Procedures Procedure Name Priority Date/Time Associated Diagnosis Comments HIGH RISK HPV DNA DETECTION WITH GENOTYPING Routine 09/19/2024 11:53 AM TREER Screening for malignant neoplasm of cervix HEPATITIS C ANTIBODY Routine 12/19/2017 2:30 PM CDT Encounter for supervision of normal first in first trimester from Last 3 Months or Most Recently Relevant to Health Maintenance Results * High Risk HPV DNA Detection with Genotyping (Molecular component) (09/19/2024 11:53 AM TREER) HPV HR 16 Not Detected Not Detected [facility] Comment:Testing performed by : [facility], [address] [place]., [address] HPV HR 18 Not Detected Not Detected [facility] Comment:Testing performed by : [facility], [address] [place]., [address] HPV HR Non 16/18 Not Detected Not Detected [facility] Comment: Interpretive Data Nucleic acid amplification for detection of high-risk Human Papilloma virus (HPV) is performed by the Ace Jhon 6800 HPV test. This assay specifically detects HPV-16 and HPV-18 genotypes. The following HPV genotypes are detected as high-risk HPV: HPV-31, 33, 35, ,39, 45, 51, 52, 56, 58, 59, 66, and 68. This assay has been approved by the [place] Food and Drug Administration for detection of HPV in cervical specimens collected by a physician using an endocervical brush/spatula or cervical broom and placed in the ThinPrep Pap Test PreservCyt collection containers. The performance characteristics of this test have been verified by the [facility] Molecular Infectious Disease laboratory. Correlate with separately reported cytology results, as applicable. Interpretive data last revised 23 Testing performed by: [facility], [address] [place]., [address] Endocervical 09/19/2024 11:5 3 AM TREER 09/22/2024 2:35 PM TREER Narrative PAULA - 09/23/2024 2:58 AM TREER Clinical history and diagnosis->Liquid-based PAP test with high risk HPV test- Z12.4 Number of vials->1 Testing type->Screening Last menstrual period (date if known)->August 2024 Danica Branch DO LAB BODY FLUIDS AND STO OLS ORDERABLES Final Result [facility] [address] [place] [address] [facility] * Hepatitis C antibody (12/19/2017 2:30 PM CDT) Hep C Ab NON-REACTI VE NON-REACTI VE [facility] [place] SIGNAL TO CUT-OFF 0.01 <1.00 [facility] [place] Blood specimen (specimen) 12/19/2017 2:30 PM CDT 12/19/2017 2:31 PM CDT Narrative Resulting Agency Comment Performing Organization Information: Site ID: [id number] Name: [facility] Address: [address] [place] [address] Director: Jeovanny Ramsay D.O., MPH Zeb Samano MD LAB MICROBIOLOGY - GENERAL ORDERABLES Final Result Performing Organization Address City/[facility]/ZIP Co de Phone Number [facility] [place] from Last 3 Months or Most Recently Relevant to Health Maintenance Insurance [facility] Advance Directives For more information, please contact: [phone] * Full Code (Latest Code Status on File) Date Activated Date Inactivated Comments 06/06/2023 8:27 PM 06/07/2023 8:43 PM * Full Code Date Activated Date Inactivated Comments 05/09/2018 9:25 PM 05/11/2018 8:45 PM * Full Code Date Activated Date Inactivated Comments 05/08/2018 11:53 AM 05/09/2018 9:25 PM Full CPR in c ase of cardiopulmonary arrest Care Teams Switchboard Troubleshooter Relationship Specialty Start Date End Date Erlinda Bundy NP [address] [place] [address] PCP - General Family Medicine 01/07/25
--- OUTSIDE RECORDS SUMMARY | 2025-06-25 09:06 | XMS_ITS | Patient Health Record ---
Author Organization [facility] [employer] [facility] Address [address] [facility] [address] [place] [address] Care Team Providers Care It Data Architect Name Role Phone Teresa Ferraro Unavailable [phone] Reason For Referral No Information Plan Of Treatment No Information
--- OUTSIDE RECORDS SUMMARY | 2025-06-25 09:06 | XMS_ITS | Encounter Summary ---
Author Organization [facility] Address [address] [place] [address] Phone Care Team Providers Care City Comptroller Name Role Phone Erlinda Bundy CLAIMS COORDINATOR Primary Care Provider [phone] Encounter Details Date Type Department Care Team (Latest Contact Info) Description 02/13/2018 Orders Only [facility] CONVERSION Scanning, Provider Social History Tobacco Use Types Packs/Day Years Used Date Smoking Tobacco: Never Smokeless Tobacco: Never Alcohol Use Standard Drinks/Week Comments No 0 (1 standard drink = 0.6 oz pur e alcohol) Comments Yes Sex and Gender Information Value Date Recorded Sex Assigned at Not on file Legal Sex Female 1:10 PM COAL HIKER Gender Identity Not on file Sexual Orientation Not on file documented as of this encounter Plan of Treatment Not on file documented as of this encounter Procedures Procedure Name Priority Date/Time Associated Diagnosis Comments OBSTETRIC/GYNECOLOGY ULTRASONOGRAPHY REPORT 02/13/2018 11:37 AM CDT documented in this encounter Results * OBSTETRIC/GYNECOLOGY ULTRASONOGRAPHY REPORT (02/13/2018 11:37 AM CDT) Anatomical Region Laterality Modality Ultrasound us Provider Scanning IMG OB US PROCEDURES Final Res ult documented in this encounter Visit Diagnoses Not on filedocumented in this encounter Care Teams City Comptroller Relationship Specialty Start Date End Date Erlinda Bundy NP [address] [place] [address] [place] [address] PCP - General Family Medicine 01/07/25 documented as of this encounter
--- OUTSIDE RECORDS SUMMARY | 2025-06-25 09:06 | XMS_ITS | Encounter Summary ---
Author Organization [facility] Address [address] [place] [address] Phone Care Team Providers Care Electrical Sign Wirer Helper Name Role Phone Erlinda Bundy CARGO HANDLER Primary Care Provider [phone] Encounter Details Date Type Department Care Team (Late st Contact Info) Description 04/20/2023 Orders Only [facility] Scanning, Provider Social History Tobacco Use Types Packs/Day Years Used Date Smoking Tobacco: Former Smokeless Tobacco: Never Alcohol Use Standard Drinks/Week Comments No 0 (1 standard drink = 0.6 oz pur e alcohol) Comments No Sex and Gender Information Value Date Recorded Sex Assigned at Not on file Legal Sex Female 1:10 PM MANAGER [place] Gender Identity Not on file Sexual Orientation Not on file documented as of this encounter Plan of Treatment Not on file documented as of this encounter Procedures Procedure Name Priority Date/Time Associated Diagnosis Comments SCAN - LABS 04/20/2023 documented in this encounter Results * SCAN - LABS (04/20/2023) us Provider Scanning Final Result documented in this encounter Visit Diagnoses Not on filedocumented in this encounter Care Teams Electrical Sign Wirer Helper Relationship Specialty Start Date End Date Erlinda Bundy NP [address] [place] [address] PCP - General Family Medicine 01/07/25 documented as of this encounter
--- OUTSIDE RECORDS SUMMARY | 2025-06-25 09:07 | XMS_ITS | Clinical Summary ---
Author Organization [facility] Address [address] [place] [address] Care Team Providers Care Scow Captain Name Role Phone Jarek Ray COLLEGE ATHLETE-PHOTOGRAPHS CURATOR Primary Care Provider Source Comments [facility],non-owned Affiliates and Associated Physician Practices is amultiple site organization consisting of ambulatory clinics and hospital sitesin [place], [place], [place] and [place]. This disclosure is being madepursuant to the Care Everywhere program and may not contain all information available regarding this patient. Last updated 18.[facility] Allergies Active Allergy Reactions Criticality Noted Date Comments Codeine Other 04/18/2012 Restless leg Sulfa Drugs Rash Low 04/18/2012 Tramadol Other 04/18/2012 Urinary retention Medications * This document contains information received from the source organization and may not represent a complete record from that organization. * Be aware that medications may not be up to date on this document. Alwaysverify current medications with the patient. rizatriptan (MAXALT) 10 MG tablet Take 10 mg by mouth 2 times daily as needed. Active oxycodone, immediate release, (OXY-IR) 15 MG tablet Take 30 mg by mouth every 4 hours as needed. Active baclofen (LIORESAL) 10 MG tablet Take 10 mg by mouth 3 times daily. May cause drowsiness. Active clonazePAM (KLONOPIN) 1 MG tablet Take 0.5 mg by mouth every 8 hours as needed. Active ondansetron (ZOFRAN) 4 MG tablet Take 4 mg by mouth every 4 hours as needed. Active Sorbitol SOLN Use 3 Units once daily. 3 tablespoons Daily Active amitriptyline (ELAVIL) 10 MG tablet Take 25 mg by mouth at bedtime. Active zolpidem (AMBIEN) 10 MG tablet Take 10 mg by mouth nightly as needed. Active lactulose (CHRONULAC) 10 GM/15ML solution Take 15 mL by mouth once daily. Active potassium chloride (KLOR-CON) 20 MEQ tablet Take 20 mEq by mouth once daily. Active fluticasone-cynthia meterol (ADVAIR) 100-50 MCG/DOSE inhaler Inhale 1 Puff by mouth 2 times daily. Active amphetamine-dex troamphetamine (ADDERALL) 10 MG tablet Take 10 mg by mouth every morning. Active albuterol (PROVENTIL; VENTOLIN) 2 MG/5ML syrup Take 2 mg by mouth 3 times daily as needed. Active albuterol-iprat ropium (COMBIVENT) 18-103 MCG/ACT inhaler Inhale 2 Puffs by mouth 4 times daily. Active pantoprazole EC (PROTONIX) 40 MG tablet Take 40 mg by mouth once daily. Active ondansetron (ZOFRAN) 4 MG tablet Take 1 Tab by mouth every 4 hours as needed for Nausea/Vomiting . 10 Tab 0 04/19/20 12 Active promethazine (PHENERGAN) 25 MG suppository Insert 1 Suppository into the rectum every 6 hours as needed for Nausea/Vomiting . 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 Gender Identity Not on file Sexual Orientation Not on file Last Filed Vital Signs Vital Sign Reading Time Taken Comments Blood Pressure 110/80 04/23/2015 2:17 PM CDT Pulse 95 04/23/2015 2:13 PM CDT Temperature 36.7 C (98 F) 04/23/2015 2:13 PM CDT Respiratory Rate 16 07/10/2013 12:02 PM CDT Oxygen Saturation 99% 04/23/2015 2:13 PM CDT Inhaled Oxygen Concentration - - Weight 48.8 kg (107 lb 8 oz) 04/23/2015 2:13 PM CDT Height 146.1 cm (4' 9.5) 04/08/2015 2:41 PM CDT Body Mass Index 22.86 04/08/2015 2:41 PM CDT Plan of Treatment Health Maintenance Due Date Last Done Comments HIV SCREENING 2002 DTAP/TDAP/TD VACCINES (1 - Tdap) 2006 HEPATITIS B VACCINE (1 of 3 - 19+ 3-dose series) 2006 HPV VACCINE (1 - 3-dose SCDM series) 2014 DEPRESSION SCREENING 10/08/2024 COVID-19 VACCINE ( - 2023- season) 2025 INFLUENZA VACCINE (#1) 2025 ZOSTER VACCINE (1 of 2) 2037 HEPATITIS C SCREENING Completed 12/29/2011 , 12/29/2011, 12/29/2011, Additional history exists HIB VACCINE Aged Out No longer eligi ble based on patient's age to complete this topic MENINGOCOCCAL (Group B) VACCINE SHARED DECISION-MAKING Aged Out No longer eligible based on patient's age to complete this topic MENINGOCOCCAL GROUPS A/C/Y/W VACCINE Aged Out No longer eligible based on patient's age to complete this topic PNEUMOCOCCAL VACCINE Aged Out No long er eligible based on patient's age to complete this topic Procedures Procedure Name Priority Date/Time Associated Diagnosis Comments HEPATITIS C AB W RFLX VERIFICATION Routine 12/29/2011 2:15 PM CDT from Last 3 Months or Most Recently Relevant to Health Maintenance Results * HEPATITIS C AB W RFLX VERIFICATION (12/29/2011 2:15 PM CDT) Hepatitis C Antibody <0.1 0.0 - 0.9 s/co [facility] 12/29/2011 2:15 PM CDT 12/29/2011 6:18 PM CDT Narrative [facility] ([facility]) - 12/30/2011 9:27 AM CDT Performed at: [address] [place] [address] [place], [place] [id number] Wafer Fab Technician: Abigail Monsivais MD, Phone: [phone] Juan Alberto Herrera MD LAB - CHEMISTRY ORDERABLES Final Result [facility] ([facility]) [address] [place] [address], [facility] from Last 3 Months or Most Recently Relevant to Health Maintenance Insurance Care Teams Scow Captain Relationship Specialty Start Date End Date Jarek Ray, COLLEGE ATHLETE-PHOTOGRAPHS CURATOR [address] [place] [id number] PCP - General Nurse Practitioner Family 10/10/17
--- OUTSIDE RECORDS SUMMARY | 2025-06-25 09:07 | XMS_ITS | Clinical Summary ---
Author Organization [facility] Address [address] [place] [address] Care Team Providers Care Rn Private Duty Name Role Phone Unavailable Primary Care Provider Unavailabl e Social History Tobacco Use Types Packs/Day Years Used Date Smoking Tobacco: Never Assessed Comments Unknown Sex and Gender Information Value Date Recorded Sex Assigned at Not on file Legal Sex Female 1:11 AM PST Gender Identity Not on file Sexual Orientation Not on file Plan of Treatment Not on file
--- OUTSIDE RECORDS SUMMARY | 2025-06-25 09:07 | XMS_ITS | Encounter Summary ---
Author Organization [facility] Address [address] [place] [address] Care Team Providers Care Systems Accountant Name Role Phone Unavailable Primary Care Provider Unavailabl e Prior Encounters Date Type Department Care Team Description 10/27/2019 Converted 13x Documents [facility] [address] [place] [address] <No scans attached> Plan of Treatment Not on file Visit Diagnoses Not on file
--- NOTE | 2025-06-25 09:17 | ED_ITS ---
HPI - URI/Sore Throat General Chief Complaint: Upper Respiratory Infection Stated Complaint: respiratory issues Time Seen by Provider: 06/25/25 09:05 Source: patient Mode of arrival: ambulatory Limitations: no limitations History of Present Illness HPI Narrative: Cherelle is a 39-year-old female patient presenting to the clinic today with complaints of some chest heaviness, feels as though her lungs restricted, and cough x3 days. Reports she felt as though she had a low-grade fever yesterday. When asked how high her fever was she said low 100s. Denies any URI symptoms. States she does have a history of asthma. Was able to cough up some phlegm this morning and feels better. Did not see what color the phlegm was. MD elicited complaint: sore throat and nasal congestion Related Data Home Medications ?Medication ?Instructions ?Recorded ?Confirmed ?Last Taken ?Type sumatriptan succinate 25 mg tablet 25 mg PO DIRECTE D PRN Migraine 11/03/21 05/27/23 Unknown History Headache venlafaxine 150 mg 150 mg PO DAILY 11/03/2103/23/23 09:00 History capsule,extended release 24 hr dextroamphetamine-amphetamine 10 10 mg PO HS 03/23/23 05/27/23 03/22/23 20:00 History mg tablet albuterol sulfate 90 mcg/actuation inhalation 06/25/25 Unknown History aerosol inhaler Allergies Allergy/AdvReac Type Severity Reaction Status Date / Time sulfamethoxazole Allergy Unknown RASH Verified 06/25/25 09:03 trimethoprim Allergy Unknown RASH Verified 06/25/25 09:03 amoxicillin (From Augmentin) AdvReac Nausea Verified 06/25/25 09:03 clavulanic acid (From AdvReac Nausea Verified 06/25/25 09:03 Augmentin) Review of Systems Review of Systems: Pertinent positives per HPI. Patient denies any fever, chills, rash, headache, visual changes, dizziness, cough, shortness of breath, chest pain, palpitations, nausea, vomiting, diarrhea, constipation, abdominal pain, or any urinary issues. [facility] Past Medical History Medical History ADHD (attention deficit hyperactivity disorder) Anxiety and depression Autoimmune disease History of asthma Migraine headache without aura Neuropathy Surgical History Surgical History [place] teeth extracted Family History Family History Father Alcoholism Hyperthyroidism Cerebrovascular accident Grandparent Diabetes mellitus Liver cancer Malignant neoplasm of prostate Sibling Hemochromatosis Migraine Social History Social History Social History: she lives with her . She has one son who has cerebral palsy and one step son cerebral palsey . The patient vapes and uses marijuana. She is a [id number] mother. Code status full code Smoking status: Current every day smoker Tobacco type: e-cigarettes/vaping Alcohol intake: never Substance use: current Substance use type: marijuana Lack of Transportation: No Lack of Food: Never True Current Housing: I Have Housing Concerned About Future Housing: No Difficulty Paying Gas/Electric Bills: No Difficulty Paying for Meds: No Currently Unemployed: No Education: Don't Know Difficulty w/ Childcare or Family Care: No Living arrangements: with family Gender identity (if verbalized by the patient): Female Spiritual care concerns: No Comments At the time of my signature, I reviewed and agree with the nursing past medical, surgical, social, and family history. There is no relevant family history pertinent to the patient complaint. Exam Narrative: General: Well-developed, well nourished, in no apparent distress Head: Normocephalic, atraumatic Eyes: Pupils equally round and reactive to light bilaterally, EOM intact, sclera and conjunctive clear, no discharge, lids normal Ears: TMs intact and clear, ear canals clear, no drainage, grossly hearing normal. Nose: Nares patent, no discharge, no inflammation, no sinus tenderness. Mouth: Oral pharynx without lesions or masses, good dentition, MMM. Neck: Supple, trachea midline, no enlargement of anterior or posterior cervical nodes, no thyroid masses or goiter palpable. Cardio: Regular rate and rhythm, s1 and s2 normal, no murmur appreciated. Resp: Clear to auscultation bilaterally, no rhonchi, rales, wheezing or rubs Course Course Emergency Course: Portions of this record may have been created with voice recognition software. Level of Care: Express Care Visit Vital Signs Vital signs: Vital Signs Temperature 36.7 C 06/25/25 08:57 Pulse Rate 80 06/25/25 08:57 Respiratory Rate 16 06/25/25 08:57 Blood Pressure 128/78 06/25/25 08:57 Pulse Oximetry 100 06/25/25 08:57 Oxygen Delivery Room Air 06/25/25 08:57 Temperature 36.7 C 06/25/25 08:57 Pulse Rate 80 06/25/25 08:57 Respiratory Rate 16 06/25/25 08:57 Blood Pressure 128/78 06/25/25 08:57 Pulse Oximetry 100 06/25/25 08:57 Oxygen Delivery Room Air 06/25/25 08:57 Vital signs reviewed MDM - URI/Sore Throat MDM Narrative Medical decision making narrative: At the time of visit patient is resting comfortably on the exam table. Patient appears to be nontoxic. complaints of some chest heaviness, feels as though her lungs restricted, and cough x3 days. Reports she felt as though she had a low- grade fever yesterday. When asked how high her fever was she said low 100s. Denies any URI symptoms. States she does have a history of asthma. Was able to cough up some phlegm this morning and feels better. Did not see what color the phlegm was. Lung sounds are clear in the clinic today, oxygenation is 100% on room air. Offered chest x-ray as patient was initially concerned of pneumonia and patient declined at this time. Plan: I suspect patient has asthma exacerbation. Prescription for 5 day course of prednisone was sent to the pharmacy and a refill on her inhaler. Supportive measures were discussed with the patient and they voiced understanding discharge instructions and agrees to treatment plan. Return precautions reviewed Differential Diagnosis Differential diagnosis: Likely upper respiratory infection, otitis media, sinusitis, viral infection, bronchitis, influenza, pharyngitis and other (COVID) Discharge Plan Discharge Clinical Impression: Asthma exacerbation Qualifiers: Asthma severity: unspecified severity Asthma persistence: unspecified Qualified Code(s): J45.901 - Unspecified asthma with (acute) exacerbation Patient Disposition: Home Condition: Stable Instructions: Antibiotic Form, Asthma (ED) Additional Instructions: Take prescription medications only as prescribed-albuterol inhaler and prednisone Increase fluids and stay well hydrated May take Tylenol or motrin as directed on bottle for pain/fever May use Flonase 1 spray in each nare daily May take OTC antihistamines such as Zyrtec or Claritin daily as directed on bottle May apply Vicks vapor rub to chest to open sinuses Sinus rinses for congestion Cepacol spray, cough drops, throat lozenges, warm tea with honey/lemon, gargle salt water to soothe throat BRAT diet for diarrhea Clear liquids x 24 hours then advance as tolerated for nausea/vomiting Go to the ED if you develop a worsening in your condition- high fever not controlled by Tylenol or Motrin, dehydration, weakness, lethargy, shortness of breath, or chest pain. Follow up with your PCP in 3-5 days if symptoms persist. Patient Language: Beninese Prescriptions: New albuterol sulfate 90 mcg/actuation HFA aerosol inhaler 2 puff inhalation Q4-6H PRN (Reason: shortness of breath or wheezing) 30 Days Qty: 8.5 0RF prednisone 20 mg tablet 40 mg PO DAILY 5 Days Qty: 10 0RF No Action albuterol sulfate 90 mcg/actuation HFA aerosol inhaler INHALATION venlafaxine 150 mg capsule,extended release 24hr 150 mg PO DAILY sumatriptan succinate 25 mg tablet 25 mg PO DIRECTED PRN (Reason: Migraine Headache) dextroamphetamine-amphetamine 10 mg tablet 10 mg PO HS Follow-up/Referrals: Sha,Erlinda Mccallum NP [Primary Care Provider, Unknown] Time of Disposition: 09:20 Quality NIHSS Nursing Documentation ED NIHSS nursing documentation: reviewed/agree
== END 2025-06-25 09:24 | disposition home or self-care (01) ==
PROVIDERS: Emergency Provider Nurse Practitioner Family; PCP Nurse Practitioner Family
DX: J45.901 Unspecified asthma with (acute) exacerbation (principal); F17.290 Nicotine dependence, other tobacco product, uncomplicated; G62.9 Polyneuropathy, unspecified; M35.9 Systemic involvement of connective tissue, unspecified; J45.909 Unspecified asthma, uncomplicated; F90.9 Attention-deficit hyperactivity disorder, unspecified type; F41.9 Anxiety disorder, unspecified; F32.A Depression, unspecified
CPT/HCPCS: 99213; G0463

== ENCOUNTER 2025-08-04 08:45 | Emergency (ER) | payer OTHER, SELFPAY ==
[2025-08-04 08:50] VITALS: BP 144/90; PULSE 90; RESP 20; TEMP 37; O2SAT 100
--- OUTSIDE RECORDS SUMMARY | 2025-08-04 09:09 | XMS_ITS | Encounter Summary ---
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
--- OUTSIDE RECORDS SUMMARY | 2025-08-04 09:09 | XMS_ITS | Clinical Summary ---
Author Organization [facility] Address [address] [place] [address] Care Team Providers Care Field Sales Manager Name Role Phone Erlinda Bundy NP Primary Care Provider [phone] Allergies Active Allergy Reactions Criticality Noted Date [...] which are steroid responsive. She has seen [facility] rheumatology in the past (last visit November 2022) for positive HOLLEY and skin rash with right ear pain/swelling, nose pain/swelling with possibility of relapsing polychondritis. She then saw a visiting nurse in December who performed a punch biopsy [...] Hx Other Medical 2010 Gastritis / Ero roslaie Hx Other Medical [place] Teeth x 4 History of multiple allergies [...] on file Legal Sex Female 1:10 PM OFFICER LIEUTENANT Gender Identity Not on file Sexual Orientation [...] 6 CARLOS SON,B Nura Gandhi MD Delivery Location:[facility] C amp[facility] ([facility]) 2022 SAB SAB Last Filed Vital Signs Vital Sign Reading Time Taken Comments Blood Pressure 114/58 09/19/2024 11:10 AM OFFICER LIEUTENANT Pulse 68 10/15/2023 8:30 PM OFFICER LIEUTENANT Temperature 37.1 C (98.8 F) 10/15/2023 6:15 PM OFFICER LIEUTENANT Respiratory Rate 16 10/15/2023 8:30 PM OFFICER LIEUTENANT Oxygen Saturation 100% 10/15/2023 8:30 PM OFFICER LIEUTENANT Inhaled Oxygen Concentration - - Weight 52.2 kg (115 lb) 09/19/2024 11:10 AM OFFICER LIEUTENANT Height 144.8 cm (4' 9) 09/19/2024 11:10 AM OFFICER LIEUTENANT Body Mass Index 24.89 09/19/2024 11:10 AM OFFICER LIEUTENANT Plan of Treatment Health Maintenance Due Date [...] DETECTION WITH GENOTYPING Routine 09/19/2024 11:53 AM OFFICER LIEUTENANT Screening for malignant neoplasm of cervix HEPATITIS C ANTIBODY Routine 12/19/2017 2:30 PM CDT Encounter for supervision of normal first in first trimester from Last 3 Months or Most Recently Relevant to Health Maintenance Results * High Risk HPV DNA Detection with Genotyping (Molecular component) (09/19/2024 11:53 AM OFFICER LIEUTENANT) HPV HR 16 Not Detected Not Detected [facility] Comment:Testing performed by : [facility], [address] [place]., [address] HPV HR 18 Not Detected Not Detected [facility]JAVI Comment:Testing performed by : [facility], [address] [place]., [address] HPV HR Non 16/18 Not Detected Not Detected [facility]I Comment: Interpretive Data Nucleic acid amplification for [...] this test have been verified by the [facility] Molecular Infectious Disease laboratory. Correlate with separately reported cytology results, as applicable. Interpretive data last revised 23 Testing performed by: [facility], [address] [place]., [address] Endocervical 09/19/2024 11:5 3 AM OFFICER LIEUTENANT 09/22/2024 2:35 PM OFFICER LIEUTENANT Narrative [facility] - 09/23/2024 2:58 AM OFFICER LIEUTENANT Clinical history and diagnosis->Liquid-based PAP test with high risk HPV test- Z12.4 Number of vials->1 Testing type->Screening Last menstrual period (date if known)->August 2024 Danica Branch DO LAB BODY FLUIDS AND STO OLS ORDERABLES Final Result [facility] [address] Department [place] [address] [facility] * Hepatitis C antibody (12/19/2017 2:30 PM CDT) Hep C Ab NON-REACTI VE NON-REACTI VE [facility] SIGNAL TO CUT-OFF 0.01 <1.00 [facility] [place] Blood specimen (specimen) 12/19/2017 2:30 PM CDT 12/19/2017 2:31 PM CDT Narrative Resulting Agency Comment Performing Organization Information: Site ID: [id number] Name: [facility] Address: [address] [place] [address] Director: Jeovanny Ramsay D.O., MPH Zeb Samano MD LAB MICROBIOLOGY - GENERAL ORDERABLES Final Result Performing Organization Address City/[facility]/ZIP Co de Phone Number [facility] [place] from Last 3 Months or Most Recently Relevant to Health Maintenance Insurance [facility] Advance Directives For more information, please contact: [phone] * Full Code (Latest Code Status on File) Date Activated Date Inactivated Comments 06/06/2023 8:27 PM 06/07/2023 8:43 PM * Full Code Date Activated Date Inactivated Comments 05/09/2018 9:25 PM 05/11/2018 8:45 PM * Full Code Date Activated Date Inactivated Comments 05/08/2018 11:53 AM 05/09/2018 9:25 PM Full CPR in c ase of cardiopulmonary arrest Care Teams Field Sales Manager Relationship Specialty Start Date End Date Erlinda Bundy NP [address] [place] [address] PCP - General Family Medicine 01/07/25
--- OUTSIDE RECORDS SUMMARY | 2025-08-04 09:09 | XMS_ITS | Encounter Summary ---
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
[2025-08-04 09:10] LABS: EDSTREPNEGPOS1 Positive (Negative)
--- OUTSIDE RECORDS SUMMARY | 2025-08-04 09:10 | XMS_ITS | Patient Health Record ---
Author Organization [facility] Address [address] [facility] [address] [place] [address] Care Team Providers Care Glass Etcher Name Role Phone Teresa Ferraro Unavailable [phone] Reason For Referral No Information Plan Of Treatment No Information
--- OUTSIDE RECORDS SUMMARY | 2025-08-04 09:10 | XMS_ITS | Clinical Summary ---
Author Organization [facility] Address [address] [place] [address] Phone Care Team Providers Care Pharmacy Director Name Role Phone Jarek Ray APRN, CERTIFIED RECREATIONAL THERAPIST Primary Care Provider Allergies Active Allergy Reactions Criticality Noted Date Comments Sulfamethoxazole-Trimethoprim Rash 2016 Medications venlafaxine (EFFEXOR XR) 75 MG CAPSULE SR 24 HR Take 150 mg by mouth daily. Active GABAPENTIN PO Take 600 mg by mouth 4 times daily. Active amphetamine-dex troamphetamine (Adderall XR) 30 MG CAPSULE SR 24 HR Take 30 mg by mouth every morning. Active topiramate (TOPAMAX) 25 MG Tablet Take 50 mg by mouth daily. Active doxycycline hyclate (VIBRAMYCIN) 100 MG Capsule Take 100 mg by mouth 2 times daily. Active traMADol (ULTRAM) 50 MG TabletIndicatio ns:Impetigo Take 1-2 Tablets by mouth every 6 hours as needed for Moderate or more severe pain. 15 Tablet 11/12/2021 Active Social History Tobacco Use Types Packs/Day Years Used Date Smoking Tobacco: Former Smokeless Tobacco: Never Alcohol Use Standard Drinks/Week Comments No 0 (1 standard drink = 0.6 oz pur e alcohol) Comments No Sex and Gender Information Value Date Recorded Sex Assigned at Not on file Legal Sex Female 11:28 PM CDT Gender Identity Not on file Sexual Orientation Not on file Last Filed Vital Signs Vital Sign Reading Time Taken Comments Blood Pressure 135/82 11/12/2021 11:35 AM [facility] Pulse 77 11/12/2021 11:35 AM [facility] Temperature 36.6 C (97.9 F) 11/12/2021 11:35 AM [facility]ATE Respiratory Rate 16 11/12/2021 11:35 AM [facility]OCATE Oxygen Saturation 99% 11/12/2021 11:35 AM [facility] Inhaled Oxygen Concentration - - Weight 47.6 kg (105 lb) 11/12/2021 11:35 AM [facility] Height 147.3 cm (4' 10) 11/12/2021 11:35 AM [facility] Body Mass Index 21.95 11/12/2021 11:35 AM HE[facility] ADVOCATE Plan of Treatment Health Maintenance Due Date Last Done Comments Hepatitis C Virus (HCV) Screening 1987 Hepatitis B Immunization (1 of 3 - 19+ 3-dose series) 2006 Pap Smear 2008 Human Papillomavirus (HPV) Immunization (1 - 3-dose SCDM series) 2014 Cervical Cancer Screening (CCS) 2017 HPV/Cotest 2017 Influenza Immunization (#1) 06/08/202507/09, 07/16/2017 SARS-COV-2 Immunization ( season) 2025 Respiratory Syncytial Virus (RSV) Immunization (Adult) (1 - 1-dose 75+ series) 2062 DTaP/Tdap/Td Immunization Discontinued 2017, 06/13/2011 TdaP Immunization Completed 05/11/2018, 06/13/2011 Meningococcal Immunization (ACWY) Aged Out No longer eligible based on patient's age to complete this topic Pneumococcal Immunization Combined Aged Out No longer eligible based on patient's age to complete this topic Rotavirus Immunization Aged Out No lo nger eligible based on patient's age to complete this topic Insurance [facility] Care Teams Pharmacy Director Relationship Specialty Start Date End Date Jarek Ray, PHYSICAL SECURITY ENGINEER, CERTIFIED RECREATIONAL THERAPIST [address] [place] [address] PCP - General Certified Nurse Practitioner 10/11/16
--- OUTSIDE RECORDS SUMMARY | 2025-08-04 09:10 | XMS_ITS | Clinical Summary ---
Author Organization [facility] Address [address] [place] [address] Care Team Providers Care City Driver Name Role Phone Jarek Ray CREDIT RISK MODELER-GROUP CAPTAIN Primary Care Provider Source Comments [facility],non-owned Affiliates and Associated Physician Practices is amultiple site organization consisting of ambulatory clinics and hospital sitesin [place], [place]. This disclosure is being madepursuant to the Care Everywhere program and may not contain all information available regarding this patient. 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 Gender Identity Not on file Sexual Orientation [...] Antibody <0.1 0.0 - 0.9 s/co ratio [facility]) 12/29/2011 2:15 PM CDT 12/29/2011 6:18 PM CDT Narrative [facility] ([facility]) - 12/30/2011 9:27 AM CDT Performed at: [address] [place] [address] [place], [place] [id number] Calender Machine Operator Helper: Abigail Monsivais MD, Phone: [phone] Juan Alberto Herrera MD LAB - CHEMISTRY ORDERABLES Final Result [facility] ([facility]) [address] [place] [address], [facility] from Last 3 Months or Most Recently Relevant to Health Maintenance Insurance Care Teams City Driver Relationship Specialty Start Date End Date Jarek Ray, CREDIT RISK MODELER-GROUP CAPTAIN [address] [place] [id number] PCP - General Nurse Practitioner Family 10/10/17
--- OUTSIDE RECORDS SUMMARY | 2025-08-04 09:10 | XMS_ITS | Encounter Summary ---
Author Organization [facility] Address [address] [place] [address] Care Team Providers Care Appliquer Name Role Phone Unavailable Primary Care Provider Unavailabl e Prior Encounters Date Type Department Care Team Description 10/27/2019 Converted 13x Documents [facility] [address] [place] [address] <No scans attached> Plan of Treatment Not on file Visit Diagnoses Not on file
--- OUTSIDE RECORDS SUMMARY | 2025-08-04 09:10 | XMS_ITS | Clinical Summary ---
Author Organization [facility] Address [address] [place] [address] Care Team Providers Care [place] Agent Name Role Phone Unavailable Primary Care Provider [...]
--- NOTE | 2025-08-04 09:44 | ED.URI ---
HPI - URI/Sore Throat General Chief Complaint: Upper Respiratory Infection Stated Complaint: Sore Throat Time Seen by Provider: 08/04/25 09:30 Source: patient and RN notes reviewed Mode of arrival: ambulatory Limitations: no limitations History of Present Illness HPI Narrative: 39-year-old female presents Express Care complaining of sore throat since yesterday. Patient says he was recently on steroids for history of asthma. Patient was sure she has oral thrush or strep throat. Patient denies any fevers advised, chills, cough, any other upper respiratory symptoms, or any other complaints. Patient denies any difficulty swallowing, difficulty clearing secretions, excessive drooling cover in her symptoms. Patient tried any [id number] to help with symptoms. Related Data Home Medications ?Medication ?Instructions ?Recorded ?Confirmed ?Last Taken ?Type sumatriptan succinate 25 mg tablet 25 mg PO DIRECTED PRN Migraine 11/03/21 05/27/23 Unknown History Headache venlafaxine 150 mg 150 mg PO DAILY 11/03/21 05/27/23 03/23/23 09:00 History capsule,extended release 24 hr dextroamphetamine-amphetamine 10 10 mg PO HS 03/23/23 05/27/23 03/22/23 20:00 History mg tablet albuterol sulfate 90 mcg/actuation inhalation 06/25/25 Unknown History aerosol inhaler methylphenidate HCl 36 mg mg PO 08/04/25 Unknown History tablet,extended release 24 hr (Concerta) Allergies Allergy/AdvReac Type Severity Reaction Status Date / Time sulfamethoxazole Allergy Unknown RASH Verified 08/04/25 09:03 trimethoprim Allergy Unknown RASH Verified 08/04/25 09:03 amoxicillin (From Augmentin) AdvReac Nausea Verified 08/04/25 09:03 clavulanic acid (From AdvReac Nausea Verified 08/04/25 09:03 Augmentin) Review of Systems Review of Systems: CONSTITUTIONAL: Denies fever, chills, or sweats. EYES: Denies visual changes, redness, or discharge. ENT: Denies rhinorrhea, congestion, or otalgia. Positive for sore throat. CARDIOVASCULAR: Denies chest pain, palpitations, or edema. RESPIRATORY: Denies cough or dyspnea. GASTROINTESTINAL: Denies abdominal pain, nausea, vomiting, or diarrhea. GENITOURINARY: Denies dysuria or hematuria. SKIN: Denies rash or itching. MUSCULOSKELETAL: Denies back pain, joint pain, or myalgia. NEUROLOGIC: Denies headache, numbness, or weakness. PSYCHIATRIC: Denies anxiety or depression. All other systems reviewed are negative, except as documented in HPI. COUNT INCLUDES THE [facility] Past Medical History Medical History Autoimmune disease Neuropathy ADHD (attention deficit hyperactivity disorder) Migraine headache without aura Anxiety and depression History of asthma Surgical History Surgical History [place] teeth extracted Family History Family History Father Alcoholism Hyperthyroidism Cerebrovascular accident Grandparent Diabetes mellitus Liver cancer Malignant neoplasm of prostate Sibling Hemochromatosis Migraine Social History Social History Social History: she lives with her . She has one son who has cerebral palsy and one step son cerebral palsey . The patient vapes and uses marijuana. She is a [id number]-gvyn mother. Code status full code Smoking status: Current every day smoker Tobacco type: e-cigarettes/vaping Alcohol intake: never Substance use: current Substance use type: marijuana Lack of Transportation: No Lack of Food: Never True Current Housing: I Have Housing Concerned About Future Housing: No Difficulty Paying Gas/Electric Bills: No Difficulty Paying for Meds: No Currently Unemployed: No Education: Don't Know Difficulty w/ Childcare or Family Care: No Living arrangements: with family Gender identity (if verbalized by the patient): Female Spiritual care concerns: No Comments At the time of my signature, I reviewed and agree with the nursing past medical, surgical, social, and family history. There is no relevant family history pertinent to the patient complaint. Exam Narrative: GENERAL: This is a well-nourished, well-developed adult, in no apparent distress. They are non ill-appearing, nontoxic appearing. HEAD: normocephalic, atraumatic. EYES: Sclera clear/white. Conjunctiva normal. Vision is grossly intact. Extraocular movements intact EARS: External ears normal, auditory canals clear and without drainage, TMs normal without perforation. Hearing grossly intact. NOSE: External nose normal with no obvious nasal discharge, nasal turbinates without redness, no rhinorrhea. THROAT: Mucous membranes moist, posterior pharynx injected without swelling. Uvula midline. NECK: Neck supple, mild cervical lymphadenopathy, no masses or thyromegaly. CARDIOVASCULAR: Regular rate and rhythm without murmurs, gallops, or rubs. RESPIRATORY: Clear to auscultation. Breath sounds equal bilaterally. No wheezes, rales, or rhonchi. SKIN: warm, Dry, intact with no suspicious lesions or rash, good texture and turgor. NEURO: awake, alert, and oriented to person, place and time. There were no obvious focal neurologic abnormalities. EXTREMITIES: No joint tenderness, effusion, or edema noted. BACK: Nontender without deformity. No CVA tenderness. Course Course Emergency Course: Portions of this record may have been created with voice recognition software Level of Care: Express Care Visit Vital Signs Vital signs: Vital Signs Temperature 98.6 F 08/04/25 08:50 Pulse Rate 90 08/04/25 08:50 Respiratory Rate 20 08/04/25 08:50 Blood Pressure 144/90 H 08/04/25 08:50 Pulse Oximetry 100 08/04/25 08:50 Oxygen Delivery Room Air 08/04/25 08:50 Temperature 98.6 F 08/04/25 08:50 Pulse Rate 90 08/04/25 08:50 Respiratory Rate 20 08/04/25 08:50 Blood Pressure 144/90 H 08/04/25 08:50 Pulse Oximetry 100 08/04/25 08:50 Oxygen Delivery Room Air 08/04/25 08:50 Reviewed MDM - URI/Sore Throat MDM Narrative Medical decision making narrative: Rapid strep positive. Will treat with amoxicillin. Discussed physical exam findings. Advised supportive measures and signs/symptoms to go to the ER. Pt is appropriate for outpt treatment and f/u. Differential Diagnosis Differential diagnosis: Likely upper respiratory infection, viral infection and pharyngitis Lab Data Attestation: I reviewed the patient's lab results. Labs: Lab Results 08/04/25 Range/Units 08:59 POC Grp A Strep Screen Positive (Negative) Critical Care Time Critical Care Time Critical Care Time: No Discharge Plan Discharge Clinical Impression: Pharyngitis Qualifiers: Pharyngitis/tonsillitis etiology: streptococcus Qualified Code(s): J02.0 - Streptococcal pharyngitis Patient Disposition: Home Condition: Stable Instructions: Antibiotic Form, Strep Throat (ED) Additional Instructions: You tested positive for strep throat. ?Please take the amoxicillin as prescribed until gone. ?You will be contagious for 24 hours after starting the medication. ?After 24 hours on antibiotics throw tooth brush away and start using a new one. Wash your sheets and cup/water bottle that is used daily. Do not share drinks. Take Tylenol or Ibuprofen as needed for pain or fevers. Follow instructions on the bottle. Rest and stay hydrated. ?Follow up with your PCP in 3 days if symptoms are not improving. ?Go to the ER immediately if you develop worsening symptoms such as shortness of breath, difficulty swallowing vomiting, worsening fevers, chest pains, or any serious concerns.. ? Patient Language: Latvian Prescriptions: New amoxicillin 500 mg tablet 500 mg PO Q12H 10 Days Qty: 20 0RF No Action albuterol sulfate 90 mcg/actuation HFA aerosol inhaler INHALATION albuterol sulfate 90 mcg/actuation HFA aerosol inhaler 2 puff inhalation Q4-6H PRN (Reason: shortness of breath or wheezing) 30 Days Qty: 8.5 0RF venlafaxine 150 mg capsule,extended release 24hr 150 mg PO DAILY sumatriptan succinate 25 mg tablet 25 mg PO DIRECTED PRN (Reason: Migraine Headache) methylphenidate HCl [Concerta] 36 mg tablet extended release 24hr PO dextroamphetamine-amphetamine 10 mg tablet 10 mg PO HS Follow-up/Referrals: Sha,Erlinda Mccallum NP [Primary Care Provider, Unknown] Time of Disposition: 09:38
== END 2025-08-04 09:42 | disposition home or self-care (01) ==
PROVIDERS: PCP Nurse Practitioner Family
DX: J02.0 Streptococcal pharyngitis (principal); F17.290 Nicotine dependence, other tobacco product, uncomplicated; F12.90 Cannabis use, unspecified, uncomplicated; M35.9 Systemic involvement of connective tissue, unspecified; G62.9 Polyneuropathy, unspecified; J45.909 Unspecified asthma, uncomplicated; F90.9 Attention-deficit hyperactivity disorder, unspecified type; F41.9 Anxiety disorder, unspecified; F32.A Depression, unspecified
CPT/HCPCS: 87880; 99213; G0463